=== PATIENT | female | born 1955 | race Caucasian/White ===

== ENCOUNTER → 2022-12-11 15:34 | Outpatient (BNVA) | payer MEDICARE, MEDICAID, SELFPAY | PROVIDERS: PCP Family Medicine; Visit Provider Orthopaedic Surgery | DX: M17.0 Bilateral primary osteoarthritis of knee (principal) | CPT/HCPCS: 20610; 99212; J3301 ==

== ENCOUNTER 2023-03-19 12:34 | Outpatient (REF) | payer MEDICARE, MEDICAID, SELFPAY | END 2023-03-19 12:35 | disposition home or self-care (01) | LOC: HO.HOSX 12:34 | PROVIDERS: Visit Provider Orthopaedic Surgery | DX: M17.12 Unilateral primary osteoarthritis, left knee (principal) | CPT/HCPCS: 99212; J3301 ==

== ENCOUNTER 2023-03-19 15:11 | Outpatient (AMB) | payer MEDICARE, MEDICAID, SELFPAY ==
--- NOTE | 2023-03-19 15:21 | A.OFFVIS_ITS ---
Intake Intake Visit Reasons: OV- LT Knee INJ 12/11/22 Intake Note: Maira Guadalupe is a 67 year old female who presents today with complaints of progressively worsening left knee pain. She describes her pain as sharp and severe in nature, /10. Her pain has gotten worse over the last few years in spite of continued non operative treatments. She has had multiple injections. The most recent injection gave her minimal relief. She has also done physical therapy for 12 weeks over the last 6 months which aggravated her pain. She has tried Tylenol and anti-inflammatory medicines as well as oxycodone which gave her minimal relief. The patient has difficulty walking even short distances bec ause of her pain. At this point her left knee pain is interfering with her activities of daily living and her ability to sleep well the night. Allergies morphine Allergy (Verified 03/19/23 15:22) Rash Medication List - Last Reconciled 03/19/23 by Kvng Culp MD albuterol sulfate 90 mcg/actuation inhalation amitriptyline 75 mg PO BEDTIME anastrozole 1 mg PO DAILY atorvastatin 10 mg PO DAILY clonazepam 1.5 mg PO BEDTIME glucosamine HCl 500 mg PO DAILY hydrochlorothiazide 12.5 mg PO QAM ibuprofen 800 mg PO Q8H PRN irbesartan 300 mg PO DAILY isosorbide mononitrate ER 60 mg PO DAILY montelukast 10 mg PO BEDTIME omeprazole 40 mg PO QAM oxycodone-acetaminophen 5-325 mg tabs PO oxycodone-acetaminophen 5-325 mg (Percocet) 1 tab PO Q8H PRN venlafaxine ER 37.5 mg PO DAILY ziprasidone HCl 20 mg PO BID [facility] Surgical History (Updated 12/11/22 @ 15:49 by Ynes Finney CMA) Status post right knee replacement History of arthroscopy of left shoulder Physical Exam Const Other: Well-nourished well-developed very friendly female awake alert and oriented x3 in no acute distress Extrem Other: Bilateral lower extremity examination shows good capillary refill, no skin lesions noted, normal sensation light touch Left knee examination shows a minimal effusion, palpable crepitus with range of motion, pain with range of motion, range of motion from -3 degrees to 115 degrees, no instability Results Reviewed Results Reviewed: 03/19/23 15:06 Lidocaine HCl 2 % MPF [Xylocaine 2 % MPF] 5 ml .ROUTE .STK-MED ONE Triamcinolone Acetonide [Kenalog-40] 40 mg .ROUTE .STK-MED ONE X-rays of the patient's left knee show severe joint space narrowing with grade 4 [id number] arthritis, subchondral sclerosis, osteophyte formation, no acute bony abnormalities Assessment & Plan Assessment & Plan (1) Arthritis of left knee: Code(s): M17.12 - Unilateral primary osteoarthritis, left knee Plan Ms. Cuenca presents with progressively worsening left knee pain due to end-stage degenerative joint disease. I had a lengthy discussion with the patient regarding the treatment options. At this point she has failed continued non operative treatments. The risks and benefits of left total knee replacement surgery were discussed at length with patient. The patient wishes to proceed with surgery. I will have my office contact the patient to pick a surgery date. I will see her back 1 week prior to her surgery to answer any final questions that she might have. I did refill her prescription for Percocet to help with her pain in the meantime. Feel free to call me at any time should questions regarding her orthopedic management arise. I spent 22 minutes in reviewing the patient's records and imaging studies, seeing the patient and documenting in the medical record. Medications: Refilled oxycodone-acetaminophen 5-325 mg (Percocet) Partial Fill upon patient request. 1 tab PO Q8H PRN 30 tabs 0RF pain Coding Level of Care Code Est Pt Level 2 (52127) Diagnoses Arthritis of left knee M17.12
== END 2023-03-19 15:40 | disposition home or self-care (01) ==
PROVIDERS: PCP Family Medicine; Visit Provider Orthopaedic Surgery
DX: M17.12 Unilateral primary osteoarthritis, left knee (principal)
CPT/HCPCS: 99212

== ENCOUNTER 2023-04-30 10:02 | Outpatient (REF) | payer MEDICARE, MEDICAID, SELFPAY ==
--- NOTE | ~2023-04-30 | XR_ITS ---
EXAMINATION: XR KNEE, LEFT CLINICAL INFORMATION: Pain in left knee COMPARISON: None available. TECHNIQUE: Three views of the left knee. FINDINGS: The bones are diffusely demineralized. Trace joint effusion. Advanced tricompartmental degenerative changes with severe medial joint space narrowing, [id number]. Tricompartmental marginal osteophytes. XR/XR knee LT 3V IMPRESSION: Advanced tricompartmental degenerative changes.
== END 2023-04-30 10:03 | disposition home or self-care (01) ==
LOC: HO.HOSX 10:02
PROVIDERS: Visit Provider Orthopaedic Surgery
DX: Z01.818 Encounter for other preprocedural examination (principal); M17.12 Unilateral primary osteoarthritis, left knee
CPT/HCPCS: 73562; 99212

== ENCOUNTER 2023-04-30 10:42 | Outpatient (AMB) | payer MEDICARE, MEDICAID, SELFPAY ==
--- NOTE | 2023-04-30 10:54 | A.OFFVIS_ITS ---
Intake Intake Visit Reasons: Preop LT TKA 05/05/23 Intake Note: Maria Guadalupe is a 67 year old female who presents today with complaints of progressively worsening left knee pain. She describes her pain as sharp and severe in nature, 04/01. Her pain has gotten worse over the last few years in spite of continued non operative treatments. She has had multiple injections. The most recent injection gave her minimal relief. She has also done physical therapy for 12 weeks over the last 6 months which aggravated her pain. She has tried Tylenol and anti-inflammatory medicines as well as oxycodone which gave her minimal relief. The patient has difficulty walking even short distances bec ause of her pain. At this point her left knee pain is interfering with her activities of daily living and her ability to sleep well the night. Allergies morphine Allergy (Severe, Verified 04/30/23 10:55) itchy rash Medication List - Last Reconciled 05/01/23 by Kvng Culp MD albuterol sulfate 90 mcg/actuation 2 puffs inhalation Q4-6H PRN alpha-1 proteinase inhib.(hum) (Prolastin-C) 1,000 mg IV QWEEK amitriptyline 75 mg PO BEDTIME anastrozole 1 mg PO DAILY atorvastatin 10 mg PO DAILY calcium carbonate (Calcium) 600 mg PO DAILY cholecalciferol (vitamin D3) (Vitamin D3) 50 mcg PO DAILY clonazepam 1.5 mg PO BEDTIME docusate sodium (Stool Softener) 200 mg PO BID [id number]-cawooorpo-sdshtbtw 100-62.5-25 mcg (Trelegy Ellipta) 1 ea inhalation DAILY glucosamine HCl 1,500 mg PO DAILY hydrochlorothiazide 12.5 mg PO QAM ibuprofen 800 mg PO Q8H PRN irbesartan 300 mg PO DAILY isosorbide mononitrate ER 30 mg PO DAILY loratadine (Claritin) 10 mg PO DAILY montelukast 10 mg PO BEDTIME multivitamin with minerals (Hair,Skin and Nails tablet) 1 tab PO DAILY omega 7-ldh-pyf-fish oil 1,000 mg (120 mg-180 mg) (Fish Oil) 1 cap PO DAILY omeprazole 40 mg PO BID oxycodone-acetaminophen 5-325 mg (Percocet) 1 tab PO Q8H PRN polyethylene glycol 3350 (Miralax) 17 grams PO DAILY PRN venlafaxine ER 37.5 mg PO DAILY ziprasidone HCl 20 mg PO BID PFSH Medical History (Updated 04/25/23 @ 12:40 by Peggy Ballesteros RN) Left bundle branch block (LBBB) Osteoarthritis Hx of breast cancer GERD (gastroesophageal reflux disease) Anxiety Depression Asthma Aortic stenosis, mild Elevated cholesterol HTN (hypertension) Hx of concussion BOUBACAR on CPAP Surgical History (Updated 04/25/23 @ 12:16 by Peggy Ballesteros RN) History of lumpectomy of right breast Hx of tonsillectomy Hx of hysterectomy, total Hx of bilateral cataract extraction History of bilateral carpal tunnel release Hx of colonoscopy Status post right knee replacement History of arthroscopy of left shoulder Social History Household Members: Family Housing: House Are you a primary career development associate to a significant other at home: No Do you presently have visiting nurse or other home services: No Patient Tobacco Use Status: Former Tobacco user Quit Date: Tobacco use type: Cigar Use of substances other than those prescribed or required for medical reasons: No Advance Directives: Yes Advance Directives Information Provided: No Advance Directives on File: Yes Advance Directives Date on File: 02/14/23 Healthcare Proxy: Yes Physical Exam Const Other: Well-nourished well-developed very friendly female awake alert and oriented x3 in no acute distress Lungs - clear to auscultation bilaterally with symmetric expansion Cardiovascular exam - regular rate and rhythm Abdominal exam - soft nontender nondistended Extrem Other: Bilateral lower extremity examination shows good capillary refill, no skin lesions noted, normal sensation light touch Left knee examination shows a mild effusion, palpable crepitus with range of motion, pain with range of motion, range of motion from -3 degrees to 115 degrees, no instability Results Reviewed Results Reviewed: X-rays of the patient's left knee show severe joint space narrowing with grade 4 [id number] arthritis, subchondral sclerosis, osteophyte formation, no acute bony abnormalities Assessment & Plan Assessment & Plan (1) Arthritis of left knee: Code(s): M17.12 - Unilateral primary osteoarthritis, left knee Plan Ms. Cuenca presents with progressively worsening left knee pain due to end-stage degenerative joint disease. I had a lengthy discussion with the patient regarding the treatment options. At this point she has failed continued non operative treatments. The risks and benefits of left total knee replacement surgery were discussed at length with the patient. The patient wishes to proceed with surgery. guest services coordinator will be consulted following her surgery for home physical therapy and nursing. I will see the patient back 2-3 weeks following her surgery for her 1st postoperative appointment. The patient will follow-up as instructed. Feel free to call me at any time should questions regarding her orthopedic management arise. I spent 22 minutes in reviewing the patient's records and imaging studies, seeing the patient and documenting in the medical record. Orders: Orders XR knee LT 3V 04/30/23 M25.562 - Pain in left knee Coding Level of Care Code Est Pt Level 2 (72645) Diagnoses Arthritis of left knee M17.12
== END 2023-04-30 11:57 | disposition home or self-care (01) ==
PROVIDERS: PCP Family Medicine; Visit Provider Orthopaedic Surgery
DX: M17.12 Unilateral primary osteoarthritis, left knee (principal)
CPT/HCPCS: 99212

== ENCOUNTER → 2023-05-05 08:30 | Outpatient (BNV) | payer MEDICARE, MEDICAID, SELFPAY | PROVIDERS: PCP Family Medicine; Visit Provider Orthopaedic Surgery | DX: Z47.1 Aftercare following joint replacement surgery (principal); Z96.652 Presence of left artificial knee joint | CPT/HCPCS: 27447; 99024; G0180 ==

== ENCOUNTER → 2023-05-05 08:30 | Outpatient (BNV) | payer MEDICARE, MEDICAID, SELFPAY | PROVIDERS: PCP Family Medicine; Visit Provider Nurse Practitioner Acute Care | DX: M25.562 Pain in left knee (principal) | CPT/HCPCS: 99222 ==

== ENCOUNTER 2023-05-06 11:45 | Inpatient (IN) | payer MEDICARE, MEDICAID, SELFPAY ==
[2023-04-25 12:18] VITALS: BP 126/61; PULSE 75; RESP 16; O2SAT 97; BMI 34.5
--- NOTE | 2023-04-25 12:36 | P.CONAN_ITS ---
Documented by User: Chikis Cha NP 04/28/23 14:26 HPI - Anesthesia Eval Consult details Narrative: 67yo F for Left Knee Replacement Total, 05/05/23 Medically cleared Cardiac cleared (Previous HAY improved with treatment of Alpha 1 antitrypsin deficiency so thought not to be cardiac related.) No recent illness No CP/SOB with minimal activity r/t knee pain GERD. Well controlled on ppi Asthma. Stable. Very rare albuterol. Trelegy daily BOUBACAR with CPAP QHS Aortic stenosis. Very mild per 2022 ECHO Alpha 1 antitrypsin deficiency with weekly Prolastin infusion PMFSH Active Problems Active Problems: All Active Problems (Updated 04/25/23 @ 12:16 by Peggy Ballesteros RN) Alpha 1-antitrypsin PiMS phenotype (Acute) Left knee pain (Acute) Arthritis of both knees (Acute) Arthritis of left knee (Acute) Past Medical History Medical History Left bundle branch block (LBBB) Osteoarthritis Hx of breast cancer GERD (gastroesophageal reflux disease) Anxiety Depression Asthma Aortic stenosis, mild Elevated cholesterol HTN (hypertension) Hx of concussion BOUBACAR on CPAP Family History Family history of problems with anesthesia: No Surgical History Surgical History History of lumpectomy of right breast Hx of tonsillectomy Hx of hysterectomy, total Hx of bilateral cataract extraction History of bilateral carpal tunnel release Hx of colonoscopy Status post right knee replacement History of arthroscopy of left shoulder History of Problems with Anesthesia: No Social History Social History Household Members: Family Housing: House Are you a primary patient care manager to a significant other at home: No Do you presently have visiting nurse or other home services: No Patient Tobacco Use Status: Former Tobacco user Quit Date: Tobacco use type: Cigar Advance Directives Date on File: 02/14/23 Meds Allergies Allergy/AdvReac Type Severity Reaction Status Date / Time morphine Allergy Severe itchy rash Verified 04/30/23 10:55 Home Medications Medication Instructions Recorded Confirmed Last Taken Type albuterol sulfate 90 mcg/actuation 2 puff inhalation Q4-6H PRN 12/11/22 05/01/23 Unknown History aerosol inhaler Shortness Of Breath Or Wheezing amitriptyline 75 mg tablet 75 mg PO BEDTIME 12/11/22 05/01/23 Unknown History anastrozole 1 mg tablet 1 mg PO DAILY 12/11/22 05/01/23 Unknown History atorvastatin 10 mg tablet 10 mg PO DAILY 12/11/22 05/01/23 Unknown History clonazepam 1 mg tablet 1.5 mg PO BEDTIME 12/11/22 05/01/23 Unknown History glucosamine HCl 500 mg tablet 1,500 mg PO DAILY 12/11/22 05/01/23 Unknown History hydrochlorothiazide 12.5 mg capsule 12.5 mg PO QAM 12/11/22 05/01/23 Unknown History ibuprofen 800 mg tablet 800 mg PO Q8H PRN Pain 12/11/22 05/01/23 Unknown History irbesartan 300 mg tablet 300 mg PO DAILY 12/11/22 05/01/23 Unknown History montelukast 10 mg tablet 10 mg PO BEDTIME 12/11/22 05/01/23 Unknown History omeprazole 40 mg capsule,delayed 40 mg PO BID 12/11/22 05/01/23 Unknown History release venlafaxine 37.5 mg 37.5 mg PO DAILY 12/11/22 05/01/23 Unknown History capsule,extended release 24 hr ziprasidone HCl 20 mg capsule 20 mg PO BID 12/11/22 05/01/23 Unknown History alpha-1 proteinase inhib.(hum) 1,000 mg IV QWEEK 04/24/23 05/01/23 Unknown History 1,000 mg intravenous solution (Prolastin-C) calcium carbonate 600 mg calcium 600 mg PO DAILY 04/24/23 05/01/23 Unknown History (1,500 mg) tablet (Calcium) cholecalciferol (vitamin D3) 50 50 mcg PO DAILY 04/24/23 05/01/23 Unknown History mcg (2,000 unit) capsule (Vitamin D3) docusate sodium 100 mg tablet 200 mg PO BID 04/24/23 05/01/23 Unknown History (Stool Softener) fluticasone fur. 100 mcg-umeclid 1 ea inhalation DAILY 04/24/23 05/01/23 Unknown History 62.5 mcg-vilant 25 mcg inhalat.powder (Trelegy Ellipta) isosorbide mononitrate 30 mg 30 mg PO DAILY 04/24/23 05/01/23 Unknown History tablet,extended release 24 hr multivitamin with minerals 1 tab PO DAILY 04/24/23 05/01/23 Unknown History (Hair,Skin and Nails tablet) omega 1-sje-zhx-fish oil 1,000 mg 1 cap PO DAILY 04/24/23 05/01/23 Unknown History (120 mg-180 mg) capsule (Fish Oil) polyethylene glycol 3350 17 17 g PO DAILY PRN Constipation 04/24/23 05/01/23 Unknown History gram/dose oral powder (Miralax) loratadine 10 mg chewable tablet 10 mg PO DAILY 04/25/23 05/01/23 Unknown History (Claritin) Exam Exam Date and Time: April 25, 2023 1236 Height,Weight and Vital Signs: Height 5 ft 5 in Weight 94 kg Last Vital Signs Pulse 75 04/25/23 12:18 Resp 16 04/25/23 12:18 BP 126/61 04/25/23 12:18 Pulse Ox 97 04/25/23 12:18 O2 Del Method Room Air 04/25/23 12:18 Pertinent Lab Results Pertinent Lab Results: CBC and BMP 04/21/23 from outside facility WNL except slightly low H&H Narrative Narrative: EKG 03/2023 SR @ 77 Horizontal axis Possible septal infarct Moderate intraventricular conduction delay Lexiscan stress 02/2023 Negative for angina, negative for ischemic EKG changes, Negative for arrhythmias Mildly reduced tracer uptake in the apex and distal septal adams of LV. Overall size of defect is small. Resting images demonstrace no significant change in the apical defect or distal septal, but worsening perfusion in the inferior wall. EF 55% ECHO 11/2022 LV nml in size LV systolic function is nml RV is nml in size and function LA size is nml Very mild aortic stenosis with mean gradient of 10mmHg Mild grade 1 DD c/w htn, not HF Nml estimated PA pressure Airway Mallampati Class: II TM Dist: >3cm Neck ROM: Full Denture: Upper Partial: Lower Heart: RRR Lungs: CTAB Assessment and Plan Assessment Anesthesia Assessment: Anesthesia Plan Discussed and PAT Visit Final Anesthetic Review Family History of Problems with Anesthesia: No History of Problems with Anesthesia: No Documented by User: Yumiko Tovar MD 05/05/23 08:42 PMFSH Past Medical History Medical History Left bundle branch block (LBBB) Osteoarthritis Hx of breast cancer GERD (gastroesophageal reflux disease) Anxiety Depression Asthma Aortic stenosis, mild Elevated cholesterol HTN (hypertension) Hx of concussion BOUBACAR on CPAP Surgical History Surgical History History of lumpectomy of right breast Hx of tonsillectomy Hx of hysterectomy, total Hx of bilateral cataract extraction History of bilateral carpal tunnel release Hx of colonoscopy Status post right knee replacement History of arthroscopy of left shoulder Social History Social History Household Members: Family Housing: House Are you a primary patient care manager to a significant other at home: No Do you presently have visiting nurse or other home services: No Patient Tobacco Use Status: Former Tobacco user Quit Date: Tobacco use type: Cigar Advance Directives Date on File: 02/14/23 Meds Allergies Allergy/AdvReac Type Severity Reaction Status Date / Time morphine Allergy Severe itchy rash Verified 04/30/23 10:55 Home Medications Medication Instructions Recorded Confirmed Last Taken Type albuterol sulfate 90 mcg/actuation 2 puff inhalation Q4-6H PRN 12/11/22 05/01/23 Unknown History aerosol inhaler Shortness Of Breath Or Wheezing amitriptyline 75 mg tablet 75 mg PO BEDTIME 12/11/22 05/01/23 Unknown History anastrozole 1 mg tablet 1 mg PO DAILY 12/11/22 05/01/23 Unknown History atorvastatin 10 mg tablet 10 mg PO DAILY 12/11/22 05/01/23 Unknown History clonazepam 1 mg tablet 1.5 mg PO BEDTIME 12/11/22 05/01/23 Unknown History glucosamine HCl 500 mg tablet 1,500 mg PO DAILY 12/11/22 05/01/23 Unknown History hydrochlorothiazide 12.5 mg capsule 12.5 mg PO QAM 12/11/22 05/01/23 Unknown History ibuprofen 800 mg tablet 800 mg PO Q8H PRN Pain 12/11/22 05/01/23 Unknown History irbesartan 300 mg tablet 300 mg PO DAILY 12/11/22 05/01/23 Unknown History montelukast 10 mg tablet 10 mg PO BEDTIME 12/11/22 05/01/23 Unknown History omeprazole 40 mg capsule,delayed 40 mg PO BID 12/11/22 05/01/23 Unknown History release venlafaxine 37.5 mg 37.5 mg PO DAILY 12/11/22 05/01/23 Unknown History capsule,extended release 24 hr ziprasidone HCl 20 mg capsule 20 mg PO BID 12/11/22 05/01/23 Unknown History alpha-1 proteinase inhib.(hum) 1,000 mg IV QWEEK 04/24/23 05/01/23 Unknown History 1,000 mg intravenous solution (Prolastin-C) calcium carbonate 600 mg calcium 600 mg PO DAILY 04/24/23 05/01/23 Unknown H istory (1,500 mg) tablet (Calcium) cholecalciferol (vitamin D3) 50 50 mcg PO DAILY 04/24/23 05/01/23 Unknown History mcg (2,000 unit) capsule (Vitamin D3) docusate sodium 100 mg tablet 200 mg PO BID 04/24/23 05/01/23 Unknown History (Stool Softener) fluticasone fur. 100 mcg-umeclid 1 ea inhalation DAILY 04/24/23 05/01/23 Unknown History 62.5 mcg-vilant 25 mcg inhalat.powder (Trelegy Ellipta) isosorbide mononitrate 30 mg 30 mg PO DAILY 04/24/23 05/01/23 Unknown History tablet,extended release 24 hr multivitamin with minerals 1 tab PO DAILY 04/24/23 05/01/23 Unknown History (Hair,Skin and Nails tablet) omega 6-qst-mwc-fish oil 1,000 mg 1 cap PO DAILY 04/24/23 05/01/23 Unknown History (120 mg-180 mg) capsule (Fish Oil) polyethylene glycol 3350 17 17 g PO DAILY PRN Constipation 04/24/23 05/01/23 Unknown History gram/dose oral powder (Miralax) loratadine 10 mg chewable tablet 10 mg PO DAILY 04/25/23 05/01/23 Unknown History (Claritin) Assessment and Plan Assessment Anesthesia Assessment: Anesthesia Plan Discussed and Chart Reviewed Final Anesthetic Review NPO: Yes ASA Class: III Final Preanesthetic Review: No Changes in Pt Med Stat, Meds/Allgs Chart Reviewed, Consent Obtained/Reviewed and Anes Risks/Benef Reviewed Patient Risk: Intermediate Procedure Risk: Intermediate Anesthetic Plan Anesthetic Plan: GA and Regional Block Disposition: Standard PACU
[2023-04-25 15:19] LABS: MRSA Nasal PCR NEGATIVE (Negative); SA Nasal PCR POSITIVE (Negative)
[2023-05-05] VITALS (8 sets, daily range): BP systolic 104–140; BP diastolic 49–63; PULSE 66–84; RESP 16–17; TEMP 36.1–36.8; O2SAT 96–99; BMI 35.2
[2023-05-05] MEDS: Lactated Ringers 1,000 ML 100 ML IVCONT ×3 (09:34→19:53)
[2023-05-05] MEDS: vancomycin HCL 1,500 MG in 0.9 % Sodium Chloride 500 ML 333.33 MG IV ×2 (09:34→22:36)
--- NOTE | 2023-05-05 13:19 | P.BOP_ITS ---
Brief Operative Note Date of Service: 05/05/23 Pre-op diagnosis: Left knee degenerative joint disease Post-op diagnosis: same Procedure: Left total knee arthroplasty Implants: [place] [employer] cemented posterior stabilized total knee arthroplasty with a femoral component size 4 left, a tibial component size 4, polyethylene liner size 4 with 9 mm of thickness, a symmetric patellar component size 29 with 9 mm of thickness Surgeon: Kvng Culp MD Anesthesia: spinal Was an Hot Blaster used for this Procedure?: Yes Hot Blaster: Heidi Chua Estimated blood loss (mL): 200 Pathology: other (Bony fragments from the left femur, tibia and patella) Condition: stable Disposition: PACU
--- NOTE | 2023-05-05 13:20 | W.PM.OPN ---
Operative Note Operative Note Date of Service: 05/05/23 Narrative: After the patient was identified as Maria Guadalupe Cuenca and their left knee was initialed by myself the patient was brought to the holding area where a left leg nerve block was performed by the anesthesiologist in routine fashion. The patient was then brought to the operating room where conscious sedation and spinal anesthesia were performed by the anesthesiologist in routine fashion The patient was given both IV Ancef and IV vancomycin preoperatively for infection prophylaxis. The patient's left lower extremity was prepped and draped in sterile fashion. A formal time-out was completed. The patient's left knee was placed onto a small bump to produce 30? of knee flexion during exposure. A #10 scalpel blade was used to make a midline incision extending 1 handbreadth proximal and distal to the patella. A second #10 scalpel blade was used to dissect the subcutaneous tissues down to the extensor mechanism. The subcutaneous flaps were maintained as thick as possible. A medial parapatellar arthrotomy was then performed using a #10 scalpel blade. The arthrotomy was begun just medial to the patellar tendon. The arthrotomy was continued 1 cm medial to the patella and then 5 mm into the medial aspect of the quadriceps tendon. The infrapatellar fat pad was partially excised to help with exposure. The soft tissue retinaculum was raised one-half of the way around the medial aspect of the proximal tibia. The patella was everted and the knee was flexed to 90?. There was no injury to the patellar tendon or its insertion onto the tibial tubercle. A drill bit was introduced into the distal aspect of the femur with a starting point 1 cm anterior to the origin of the posterior cruciate ligament. The intramedullary alignment vanita was put into place. The distal alignment guide was set for a 5 degree valgus cut. The distal cutting block was put into place and was held with 4 pins. The intramedullary alignment vanita was removed. Soft tissues were retracted in the distal femoral cut was made using a sagittal saw. The distal aspect of the femur measured to be a size 4 left component. Two drill holes were placed into the distal aspect of the femur marking 3? of external rotation. The distal cutting block was impacted into place and was held with 2 pins. Soft tissues were retracted and the 4 distal femoral cuts were made using a sagittal saw. Final notching and drilling of the distal aspect of the femur were performed in routine fashion. The trial femoral component was impacted into place. The knee was taken through a full range of motion. The patella tracked well. The patella was everted and the knee was flexed to 90?. The trial component was removed and our attention was directed to the proximal tibia. The medial and lateral menisci were removed using a #10 scalpel blade. A small rim of the medial meniscus was left intact to help prevent injury to the medial collateral ligament. A drill bit was then introduced into the proximal tibia with a starting point midway from medial to lateral and one-third of the way posteriorly. The intramedullary alignment vanita was put into place. The proximal tibial cutting guide was placed over the alignment vanita in line with the 2nd toe. The guide was held in place using 3 pins. The intramedullary alignment vanita was removed. Soft tissues were retracted and the proximal tibial cut was made using a sagittal saw. The proximal tibia measured to be a size 4 component. The tibial tray was put into place with a 9 mm liner. The femoral component was impacted into place. The knee was taken through a full range of motion. There was full flexion and full extension. There was no instability with varus or valgus stress testing with the knee in flexion or extension. The patella tracked well with no medially directed force. The rotation of the tibial tray was marked using electrocautery with the knee in extension. The patella was everted and the knee was flexed to 90?. All trial components were removed. The tibial tray was placed onto the proximal tibia in line with the electrocautery tevin. The tray was held in place using 3 pins. Final broaching of the proximal tibia was performed in routine fashion. The trial liner and trial femoral component were put into place. The knee was brought into extension and our attention was directed to the patella. The patella measured 25 mm in thickness. The patellar resection guide was set for a 10 mm resection. Soft tissues were retracted and the patella cut was made using a sagittal saw. The remaining patella measured 15 mm in thickness. The undersurface of the patella was measured to be a size 29 asymmetric component. Three drill holes were placed into the undersurface of the patella in routine fashion. The trial component was put into place. The knee was taken through a full range of motion. The patella tracked well. The patella was everted and the knee was flexed to 90?. All trial components were removed. The knee was once again brought into extension and placed onto a small bump. The knee joint was irrigated with copious amounts of normal saline solution via pulse lavage while the cement was mixed. The patella was everted and the knee was flexed to 90?. A small amount of cement was placed along the posterior aspects of the tibial and femoral components. Cement was then pressurized into the proximal tibia. The tibial component was impacted into place. Any excess cement was removed. The polyethylene liner was then impacted into place. Cement was then pressurized into the distal aspect of the femur. A small amount of cement was placed into the intramedullary canal to help reduce bleeding. The femoral component was impacted into place. Any excess cement was removed. The knee was then brought into extension. Cement was pressurized into the undersurface of the patella. The patellar component was put into place and was held with a patella clamp. Any excess cement was removed. Once the cement had hardened the patellar clamp was removed. The knee was taken through a full range of motion. There was full flexion and extension. There was no instability with varus or valgus stress testing with the knee in flexion or extension. The patella tracked well with no medially directed force. The knee joint was irrigated with copious amounts of normal saline solution via pulse lavage. Any significant bleeding vessels were coagulated. The patient's left knee was placed onto a small bump. The arthrotomy was closed with #2 Ethibond [id number] interrupted suture as well as #1 Vicryl [id number] interrupted suture. The wound was once again irrigated. The subcutaneous tissues were closed with 0 Vicryl and 2-0 Vicryl interrupted sutures. The skin was closed with skin dennis. Dry sterile dressing and Jason bandages were placed over the patient's left knee. The patient was awake and alert. The patient was transferred to the recovery room in stable condition.
--- NOTE | 2023-05-05 14:18 | P.HPHOSP_ITS ---
History of Present Illness Date of Service: 05/05/23 Chief Complaint: Medical consultation Review of Systems Review of Systems: Denies any recent fever chills or decrease in appetite respiratory denies any shortness of breath coverage production cardiovascular denied chest pain gastrointestinal denies any dysphagia abdominal pain nausea vomiting or diarrhea genitourinary denies any dysuria frequency or hematuria musculoskeletal denies any joint pain or swelling neuropsych denies any weakness or seizures all other systems reviewed are negative [facility] Medical History Left bundle branch block (LBBB) Osteoarthritis Hx of breast cancer GERD (gastroesophageal reflux disease) Anxiety Depression Asthma Aortic stenosis, mild Elevated cholesterol HTN (hypertension) Hx of concussion BOUBACAR on CPAP Surgical History History of lumpectomy of right breast Hx of tonsillectomy Hx of hysterectomy, total Hx of bilateral cataract extraction History of bilateral carpal tunnel release Hx of colonoscopy Status post right knee replacement History of arthroscopy of left shoulder Social History Household Members: Spouse Housing: House Are you a primary family day carer to a significant other at home: No Do you presently have visiting nurse or other home services: No Patient Tobacco Use Status: Former Tobacco user Quit Date: Tobacco use type: Cigar Second Hand Smoke Exposure: No Advance Directives Date on File: 02/14/23 Meds Allergies Allergy/AdvReac Type Severity Reaction Status Date / Time morphine Allergy Severe itchy rash Verified 05/05/23 09:15 Active Medications: Current Medications Albuterol Sulfate (Albuterol Sulfate 90 Mcg 8 Gm Inhaler) 2 puff INHALE Q4-6H PRN PRN Reason: Shortness Of Breath Or Wheezing Amitriptyline HCl (Amitriptyline Hcl 25 Mg Tablet) 75 mg PO BEDTIME [facility]AI Anastrozole (Anastrozole 1 Mg Tablet) 1 mg PO DAILY [facility] Atorvastatin Calcium (Atorvastatin Calcium 10 Mg Tablet) 10 mg PO DAILY [facility] Clonazepam (Clonazepam 0.5 Mg Tablet) 1.5 mg PO BEDTIME [facility] Docusate Sodium (Docusate Sodium 100 Mg Capsule) 200 mg PO BID [facility]AI Fluticasone/Umeclidinium/Vilanterol (Fluticasone/Umeclidinium/Vilanterol 100/62.5/25 Blst.W.Dev) puff INHALE DAILY [facility] Hydrochlorothiazide (Hydrochlorothiazide 12.5 Mg Tablet) 12.5 mg PO QAM [facility]; Protocol Lactated Ringer's (Lr) 1,000 mls @ 100 mls/hr IVCONT .Q10H [facility]AI Last Admin: 05/05/23 09:34 Dose: 100 mls/hr Non-Formulary Medication (Alpha-1 Proteinase Inhib.(Hum) [Prolastin-C]) 1,000 mg IV QWEEK [facility] Non-Formulary Medication (Calcium Carbonate [Calcium 600]) 600 mg PO DAILY [facility] Non-Formulary Medication (Glucosamine Hcl) 1,500 mg PO DAILY [facility] Vitamin D (Cholecalciferol (Vitamin D3) 25 Mcg Tablet) 50 mcg PO DAILY [facility] Home Medications Medication Instructions Recorded Confirmed Last Taken Type albuterol sulfate 90 mcg/actuation 2 puff inhalation Q4-6H PRN 12/11/22 05/01/23 Unknown History aerosol inhaler Shortness Of Breath Or Wheezing amitriptyline 75 mg tablet 75 mg PO BEDTIME 12/11/22 05/01/23 05/04/23 History anastrozole 1 mg tablet 1 mg PO DAILY 12/11/22 05/01/23 05/04/23 History atorvastatin 10 mg tablet 10 mg PO DAILY 12/11/22 05/01/23 05/04/23 History clonazepam 1 mg tablet 1.5 mg PO BEDTIME 12/11/22 05/01/23 05/04/23 History glucosamine HCl 500 mg tablet 1,500 mg PO DAILY 12/11/22 05/01/23 05/04/23 History hydrochlorothiazide 12.5 mg capsule 12.5 mg PO QAM 12/11/22 05/01/23 05/04/23 History ibuprofen 800 mg tablet 800 mg PO Q8H PRN Pain 12/11/22 05/01/23 Unknown History irbesartan 300 mg tablet 300 mg PO DAILY 12/11/22 05/01/23 05/04/23 History montelukast 10 mg tablet 10 mg PO BEDTIME 12/11/22 05/01/23 05/04/23 History omeprazole 40 mg capsule,delayed 40 mg PO BID 12/11/22 05/01/23 05/05/23 06:00 History release venlafaxine 37.5 mg 37.5 mg PO DAILY 12/11/22 05/01/23 05/04/23 History capsule,extended release 24 hr ziprasidone HCl 20 mg capsule 20 mg PO BID 12/11/22 05/01/23 05/04/23 History alpha-1 proteinase inhib.(hum) 1,000 mg IV QWEEK 04/24/23 05/01/23 Unknown History 1,000 mg intravenous solution (Prolastin-C) calcium carbonate 600 mg calcium 600 mg PO DAILY 04/24/23 05/01/23 05/04/23 History (1,500 mg) tablet (Calcium) cholecalciferol (vitamin D3) 50 50 mcg PO DAILY 04/24/23 05/01/23 05/04/23 History mcg (2,000 unit) capsule (Vitamin D3) docusate sodium 100 mg tablet 200 mg PO BID 04/24/23 05/01/23 05/04/23 History (Stool Softener) fluticasone fur. 100 mcg-umeclid 1 ea inhalation DAILY 04/24/23 05/01/23 05/05/23 06:00 History 62.5 mcg-vilant 25 mcg inhalat.powder (Trelegy Ellipta) isosorbide mononitrate 30 mg 30 mg PO DAILY 04/24/23 05/01/23 05/05/23 06:00 History tablet,extended release 24 hr multivitamin with minerals 1 tab PO DAILY 04/24/23 05/01/23 05/04/23 History (Hair,Skin and Nails tablet) omega 4-aia-bkc-fish oil 1,000 mg 1 cap PO DAILY 04/24/23 05/01/23 05/04/23 History (120 mg-180 mg) capsule (Fish Oil) polyethylene glycol 3350 17 17 g PO DAILY PRN Constipation 04/24/23 05/01/23 05/04/23 History gram/dose oral powder (Miralax) loratadine 10 mg chewable tablet 10 mg PO DAILY 04/25/23 05/01/23 05/05/23 06:00 History (Claritin) Physical Exam Vital Signs and Narrative: Vital Signs: Last Vital Signs Temp 97.8 F 05/05/23 13:44 Pulse 68 05/05/23 13:44 Resp 16 05/05/23 13:44 BP 119/56 L 05/05/23 13:44 Pulse Ox 98 05/05/23 13:44 O2 Del Method Room Air 05/05/23 13:44 BMI result Body Mass Index 34.5 Appearing in no acute distress head is normocephalic atraumatic eyes pupils are PERRLA sclera is anicteric mouth throat mucous membranes are intact and moist neck is supple no lymphadenopathy, no JVD noted lung sounds are clear to auscultation heart regular rate rhythm, clear S1, S2 positive bowel sounds, abdomen is soft, nontender neuro patient is alert x3, no focal deficits Assessment and Plan Plan 67 year old women admitted by Orthopedic surgery and is status post left total knee arthroplasty Left total knee arthroplasty Management as per surgical team Pain management Hypertension Blood pressure on the softer side postoperative, restart hydrochlorothiazide when blood pressure allows Mental health Continue home medications Hyperlipidemia Continue statin Obstructive sleep apnea Continue CPAP History of left bundle-branch block Continue isosorbide GERD Continue PPI DVT prophylaxis as per admitting team Full code
--- NOTE | 2023-05-05 14:32 | P.CONHOSP_ITS ---
History of Present Illness Data of Consult Service Date: 05/05/23 Primary Care Provider: Dario Cherry MD HPI 67-year-old woman with history of hypertension, hyperlipidemia, COPD admitted by Orthopedic surgery and is status post left total knee arthroplasty. Surgery was unremarkable. Patient is hemodynamically stable. She has very minimal amount of pain at this time. She has no acute medical complaints. She is currently resting in bed with family at bedside. Review of Systems Review of Systems: Denies any recent fever chills or decrease in appetite respiratory denies any shortness of breath coverage production cardiovascular denies cardiac disease gastrointestinal denies any dysphagia abdominal pain nausea vomiting or diarrh ea genitourinary denies any dysuria frequency or hematuria musculoskeletal no pain neuropsych denies any weakness or seizures all other systems reviewed are negative [facility] Medical History Left bundle branch block (LBBB) Osteoarthritis Hx of breast cancer GERD (gastroesophageal reflux disease) Anxiety Depression Asthma Aortic stenosis, mild Elevated cholesterol HTN (hypertension) Hx of concussion BOUBACAR on CPAP Surgical History History of lumpectomy of right breast Hx of tonsillectomy Hx of hysterectomy, total Hx of bilateral cataract extraction History of bilateral carpal tunnel release Hx of colonoscopy Status post right knee replacement History of arthroscopy of left shoulder Social History Household Members: Spouse Housing: House Are you a primary child care development specialist to a significant other at home: No Do you presently have visiting nurse or other home services: No Patient Tobacco Use Status: Former Tobacco user Quit Date: Tobacco use type: Cigar Second Hand Smoke Exposure: No Advance Directives Date on File: 02/14/23 Meds Allergies Allergy/AdvReac Type Severity Reaction Status Date / Time morphine Allergy Severe itchy rash Verified 05/05/23 09:15 Active Medications: Current Medications Acetaminophen (Acetaminophen 325 Mg Tablet) 650 mg PO Q6H PRN PRN Reason: Pain, Mild (Pain Scale 1-3) Albuterol Sulfate (Albuterol Sulfate 90 Mcg 8 Gm Inhaler) 2 puff INHALE Q4-6H PRN PRN Reason: Shortness Of Breath Or Wheezing Amitriptyline HCl (Amitriptyline Hcl 25 Mg Tablet) 75 mg PO BEDTIME THAI Anastrozole (Anastrozole 1 Mg Tablet) 1 mg PO DAILY [facility] Aspirin (Aspirin 325 Mg Tablet) 325 mg PO Q12H [facility]AI Atorvastatin Calcium (Atorvastatin Calcium 10 Mg Tablet) 10 mg PO DAILY [facility] Celecoxib (Celecoxib 200 Mg Capsule) 200 mg PO BID [facility]AI Clonazepam (Clonazepam 0.5 Mg Tablet) 1.5 mg PO BEDTIME [facility]AI Docusate Sodium (Docusate Sodium 100 Mg Capsule) 200 mg PO BID [facility] Fluticasone/Umeclidinium/Vilanterol (Fluticasone/Umeclidinium/Vilanterol 100/62.5/25 Blst.W.Dev) puff INHALE DAILY [facility] Gabapentin (Gabapentin 100 Mg Capsule) 100 mg PO BEDTIME [facility]AI Hydrochlorothiazide (Hydrochlorothiazide 12.5 Mg Tablet) 12.5 mg PO QAM [facility]AI; Protocol Hydromorphone HCl (Hydromorphone Hcl 0.5 Mg/0.5 Ml Syringe) 0.25 mg IVPUSH Q4H PRN; Protocol PRN Reason: Pain, Severe (Pain Scale 7-10) Hydromorphone HCl (Hydromorphone Hcl 0.5 Mg/0.5 Ml Syringe) 0.5 mg IVPUSH Q4H PRN; Protocol PRN Reason: Pain, Severe (Pain Scale 7-10) Lactated Ringer's (Lr) 1,000 mls @ 100 mls/hr IVCONT .Q10H [facility] Last Admin: 05/05/23 09:34 Dose: 100 mls/hr Lactated Ringer's (Lr) 1,000 mls @ 100 mls/hr IVCONT .Q10H [facility] Vancomycin HCl 1,500 mg/ (Sodium Chloride) 500 mls @ 333.333 mls/hr IV POSTOP ONE Stop: 05/05/23 15:45 Cefazolin Sodium/Dextrose (Ancef) 2 gm in 50 mls @ 100 mls/hr IV Q8H [facility] Stop: 05/06/23 00:00 Isosorbide Mononitrate (Isosorbide Mononitrate 30 Mg Tab.Er.24h) 30 mg PO DAILY [facility]; Protocol Methocarbamol (Methocarbamol 750 Mg Tablet) 750 mg PO BEDTIME [facility] Montelukast Sodium (Montelukast Sodium 10 Mg Tablet) 10 mg PO BEDTIME [facility] Multivitamins/Vitamin C (Multivitamin Tablet) 1 tab PO DAILY [facility] Non-Formulary Medication (Alpha-1 Proteinase Inhib.(Hum) [Prolastin-C]) 1,000 mg IV QWEEK [facility] Non-Formulary Medication (Calcium Carbonate [Calcium 600]) 600 mg PO DAILY [facility] Non-Formulary Medication (Glucosamine Hcl) 1,500 mg PO DAILY [facility] Non-Formulary Medication (Irbesartan) 300 mg PO DAILY [facility] Non-Formulary Medication (Loratadine [Claritin]) 10 mg PO DAILY [facility] Non-Formulary Medication ([place] 4-Tkh-Rzp-Fish Oil [Fish Oil]) 1 cap PO DAILY [facility] Omeprazole (Omeprazole 40 Mg Capsule.Dr) 40 mg PO BID [facility] Ondansetron HCl (Ondansetron Hcl 4 Mg/2 Ml Vial) 4 mg IVPUSH Q8H PRN PRN Reason: Nausea and Vomiting Oxycodone HCl (Oxycodone Hcl Immed Release 5 Mg Tablet) 5 mg PO Q4H PRN PRN Reason: Pain, Moderate(Pain Scale 4-6) Oxycodone HCl (Oxycodone Hcl Er 10 Mg Tab.Er.12h) 10 mg PO BID [facility] Pharmacy Consult (Consult Rx Vancomycin Dosing) 1 each MISCELLANE DAILY PRN PRN Reason: Consult order Polyethylene Glycol (Polyethylene Glycol 3350 17 Gm Powd.Pack) 17 gm PO DAILY PRN PRN Reason: Constipation Sodium Chloride (0.9 % Sodium Chloride Flush 3 Ml Syringe) 3 ml IVFLUSH QSHIFT [facility] Venlafaxine HCl (Venlafaxine Hcl Er 37.5 Mg Cap.Er.24h) 37.5 mg PO DAILY [facility] Vitamin D (Cholecalciferol (Vitamin D3) 25 Mcg Tablet) 50 mcg PO DAILY [facility] Ziprasidone (Ziprasidone 20 Mg Capsule) 20 mg PO BID [facility] Home Medications Medication Instructions Recorded Confirmed Last Taken Type albuterol sulfate 90 mcg/actuation 2 puff inhalation Q4-6H PRN 12/11/22 05/01/23 Unknown History aerosol inhaler Shortness Of Breath Or Wheezing amitriptyline 75 mg tablet 75 mg PO BEDTIME 12/11/22 05/01/23 05/04/23 History anastrozole 1 mg tablet 1 mg PO DAILY 12/11/22 05/01/23 05/04/23 History atorvastatin 10 mg tablet 10 mg PO DAILY 12/11/22 05/01/23 05/04/23 History clonazepam 1 mg tablet 1.5 mg PO BEDTIME 12/11/22 05/01/23 05/04/23 History glucosamine HCl 500 mg tablet 1,500 mg PO DAILY 12/11/22 05/01/23 05/04/23 History hydrochlorothiazide 12.5 mg capsule 12.5 mg PO QAM 12/11/22 05/01/23 05/04/23 History ibuprofen 800 mg tablet 800 mg PO Q8H PRN Pain 12/11/22 05/01/23 Unknown History irbesartan 300 mg tablet 300 mg PO DAILY 12/11/22 05/01/23 05/04/23 History montelukast 10 mg tablet 10 mg PO BEDTIME 12/11/22 05/01/23 05/04/23 History omeprazole 40 mg capsule,delayed 40 mg PO BID 12/11/22 05/01/23 05/05/23 06:00 History release venlafaxine 37.5 mg 37.5 mg PO DAILY 12/11/22 05/01/23 05/04/23 History capsule,extended release 24 hr ziprasidone HCl 20 mg capsule 20 mg PO BID 12/11/22 05/01/23 05/04/23 History alpha-1 proteinase inhib.(hum) 1,000 mg IV QWEEK 04/24/23 05/01/23 Unknown History 1,000 mg intravenous solution (Prolastin-C) calcium carbonate 600 mg calcium 600 mg PO DAILY 04/24/23 05/01/23 05/04/23 History (1,500 mg) tablet (Calcium) cholecalciferol (vitamin D3) 50 50 mcg PO DAILY 04/24/23 05/01/23 05/04/23 History mcg (2,000 unit) capsule (Vitamin D3) docusate sodium 100 mg tablet 200 mg PO BID 04/24/23 05/01/23 05/04/23 History (Stool Softener) fluticasone fur. 100 mcg-umeclid 1 ea inhalation DAILY 04/24/23 05/01/23 05/05/23 06:00 History 62.5 mcg-vilant 25 mcg inhalat.powder (Trelegy Ellipta) isosorbide mononitrate 30 mg 30 mg PO DAILY 04/24/23 05/01/23 05/05/23 06:00 History tablet,extended release 24 hr multivitamin with minerals 1 tab PO DAILY 04/24/23 05/01/23 05/04/23 History (Hair,Skin and Nails tablet) omega 9-qny-eso-fish oil 1,000 mg 1 cap PO DAILY 04/24/23 05/01/23 05/04/23 History (120 mg-180 mg) capsule (Fish Oil) polyethylene glycol 3350 17 17 g PO DAILY PRN Constipation 04/24/23 05/01/23 05/04/23 History gram/dose oral powder (Miralax) loratadine 10 mg chewable tablet 10 mg PO DAILY 04/25/23 05/01/23 05/05/23 06:00 History (Claritin) Physical Exam Vital Signs and Narrative: Vital Signs: Last Vital Signs Temp 97.8 F 05/05/23 13:44 Pulse 68 05/05/23 13:44 Resp 16 05/05/23 13:44 BP 119/56 L 05/05/23 13:44 Pulse Ox 98 05/05/23 13:44 O2 Del Method Room Air 05/05/23 13:44 BMI result Body Mass Index 35.2 Appearing in no acute distress head is normocephalic atraumatic eyes pupils are PERRLA sclera is anicteric mouth throat mucous membranes are intact and moist neck is supple no lymphadenopathy, no JVD noted lung sounds are clear to auscultation heart regular rate rhythm, clear S1, S2 positive bowel sounds, abdomen is soft, nontender neuro patient is alert x3, no focal deficits left knee surgical dressing clean dry and intact, surgical incision of visualized Assessment and Plan (1) Left knee pain: Status: Acute Plan 67 year old women admitted by Orthopedic surgery and is status post left total knee arthroplasty Left total knee arthroplasty Management as per surgical team Pain management Hypertension Blood pressure on the softer side postoperative, restart hydrochlorothiazide when blood pressure allows Mental health Continue home medications Hyperlipidemia Continue statin Obstructive sleep apnea Continue CPAP History of left bundle-branch block Continue isosorbide GERD Continue PPI DVT prophylaxis as per admitting team Full code Medical consultation complete. Will sign off
--- NOTE | 2023-05-05 14:59 | PHA.MEDREC ---
Pharmacy Consult ? Medication Reconciliation Pharmacy has reviewed the medication reconciliation completed by nursing. Sylvia Fonseca, EzekielD
[2023-05-05] MEDS: HYDROmorphone HCl 0.5 MG/0.5 ML SYRINGE IVPUSH (16:03)
[2023-05-05] MEDS: ceFAZolin Sodium/Dextrose,Iso 2 GM/50 ML PIGGYBACK IV (16:04)
[2023-05-05] MEDS: oxyCODONE HCl Immed Release 5 MG TABLET PO (16:50)
[2023-05-05] MEDS: Acetaminophen 325 MG TABLET 650 MG PO (16:50)
[2023-05-05] MEDS: Aspirin 325 MG TABLET PO (16:50)
[2023-05-05] MEDS: ondansetron HCL 4 MG/2 ML VIAL IVPUSH (17:53)
[2023-05-05] MEDS: oxyCODONE HCl ER 10 MG TAB.ER.12H PO (20:02)
[2023-05-05] MEDS: Docusate Sodium 100 MG CAPSULE 200 MG PO (20:02)
[2023-05-05] MEDS: Gabapentin 100 MG CAPSULE PO (20:02)
[2023-05-05] MEDS: Omeprazole 40 MG CAPSULE.DR PO (20:03)
[2023-05-05] MEDS: Amitriptyline HCl 25 MG TABLET 75 MG PO (20:03)
[2023-05-05] MEDS: Ziprasidone 20 MG CAPSULE PO (20:03)
[2023-05-05] MEDS: methocarbamoL 750 MG TABLET PO (20:03)
[2023-05-05] MEDS: clonazePAM 0.5 MG TABLET 1.5 MG PO (20:03)
[2023-05-05] MEDS: 0.9 % Sodium Chloride Flush 3 ML SYRINGE IVFLUSH (20:04)
[2023-05-05] MEDS: Montelukast Sodium 10 MG TABLET PO (20:04)
[2023-05-05] MEDS: Celecoxib 200 MG CAPSULE PO (20:37)
[2023-05-06] VITALS (8 sets, daily range): BP systolic 128–153; BP diastolic 56–76; PULSE 83–95; RESP 16–19; TEMP 36.3–37; O2SAT 93–97
--- NOTE | ~2023-05-06 | XR_ITS ---
EXAMINATION: XR KNEE, LEFT CLINICAL INFORMATION: Status post left TKA. COMPARISON: Left knee 04/30/2023. TECHNIQUE: Two views of the left knee. FINDINGS: Prosthetic components of the total knee arthroplasty are appropriately aligned. No periprosthetic fracture. Gas from recent surgery is present in the joint and surrounding soft tissues. A joint effusion is present. XR/XR knee LT 2V IMPRESSION: Appropriate alignment of the left total knee arthroplasty.
[2023-05-06] MEDS: ceFAZolin Sodium/Dextrose,Iso 2 GM/50 ML PIGGYBACK IV ×2 (00:36→08:01)
[2023-05-06] MEDS: HYDROmorphone HCl 0.5 MG/0.5 ML SYRINGE IVPUSH ×3 (03:41→17:55)
[2023-05-06] MEDS: Aspirin 325 MG TABLET PO ×2 (05:25→17:55)
[2023-05-06] MEDS: Lactated Ringers 1,000 ML 100 ML IVCONT ×2 (05:25→14:26)
[2023-05-06] MEDS: oxyCODONE HCl Immed Release 5 MG TABLET PO ×4 (05:57→21:54)
[2023-05-06 06:37] LABS: MANUAL DIFF FLAG NO
[2023-05-06 06:50] LABS: Basophils Percent Auto 0.4 % (0-2); Eosinophils Absolute Auto 0.2 X10*3/uL (0.0-0.4); Hematocrit 29.1 % (37.0-47.0); Hemoglobin 9.9 g/dl (12.0-16.0); Imm Gran Abs Auto 0.05 X10*3/uL (0.00-0.03); Imm Gran Pct Auto 0.5 % (0.0-0.4); Lymphocytes Absolute Auto 0.8 X10*3/uL (1.2-4.9); Lymphocytes Percent Auto 7.8 % (20-40); Mean Corpuscular Hemoglobin 30.7 pg (27.0-33.0); Mean Corpuscular Volume 90.4 fL (80.0-98.0); Mean Platelet Volume 9.1 fL (9.4-12.3); Monocytes Absolute Auto 0.9 X10*3/uL (0.1-1.2); Monocytes Percent Auto 8.6 % (2-11); Neutrophils Absolute Auto 7.9 x10*3/uL (2.0-8.3); Neutrophils Percent Auto 80.7 % (45-73); Platelet Count 278 X10*3/uL (160-400); Red Blood Count 3.22 X10*6/uL (4.20-5.50); Red Cell Distribution Width 12.4 % (11.0-16.0); White Blood Count 9.8 X10*3/uL (4.8-10.8)
[2023-05-06 07:04] LABS: Anion Gap 11 (12-20); Blood Urea Nitrogen 9 mg/dL (9-16); Calcium 8.6 mg/dL (8.4-10.2); Carbon Dioxide 27 mmol/L (22-29); Chloride 102 mmol/L (96-108); Creatinine Clr Calc Pharmacy 81.2; Estimated Glomerular Filt Rate > 60; Glucose Fasting 127 mg/dL (60-99); Potassium 4.2 mmol/L (3.3-5.1); Sodium 136 mmol/L (135-145)
--- NOTE | 2023-05-06 07:37 | P.PNOP_ITS ---
Subjective Subjective Date of Service: 05/06/23 Interval history: POD 1 s/p LT TKA no overnight events resting in bed, managing pain well denies sob, cp, palpitations Physical Exam Vital Signs: Vital Signs: Last Vital Signs Temp 98.6 F 05/06/23 06:55 Pulse 95 05/06/23 06:55 Resp 18 05/06/23 06:55 BP 145/76 H 05/06/23 06:55 Pulse Ox 94 05/06/23 06:55 O2 Del Method Room Air 05/06/23 06:55 BMI result Body Mass Index 35.2 Const: General: cooperative, healthy appearing and no acute distress Resp: Effort & Inspection: normal respiratory effort and able to speak in complete sentences Cardio: Rate: regular rate Peripheral pulses: Peripheral pulses 2+ throughout GI: Palpation (GI): Soft to palpation Skin: General skin exam: no rashes or lesions noted Extrem: Other: bandage clean dry and intact. [place] intact. No erythema or joint effusion. Calf supple nontender. Neurovascularly intact. Procedures Date of Service Date of Service: 05/06/23 Progress Note: A&P Assessment and plan (1) Status post total left knee replacement: Status: Acute Assessment and Plan: * Continue pain mgmnt * Begin Aspirin for dvt ppx * begin PT for LT TKA * Dispo planning-Pending PT eval, pain mgmnt Need for continued inpatient stay: uncontrolled pain, pt eval Time Spent With Patient Time: Total time managing care of this patient today ____ minutes. Quality Stroke Does the patient have a stroke diagnosis?: No VTE Prior VTE?: No VTE Risk Level:: Surgical - very high VTE Device Contraindication: N/A - Device Ordered VTE Drug Contraindication: N/A - Med Ordered
[2023-05-06] MEDS: Fluticasone/Umeclidinium/Vilanterol 100/62.5/25 BLST.W.DEV 1 PUFF INHALE (07:46)
[2023-05-06] MEDS: Acetaminophen 325 MG TABLET 650 MG PO ×3 (07:59→21:54)
[2023-05-06] MEDS: Cholecalciferol (Vitamin D3) 25 MCG TABLET 50 MCG PO (07:59)
[2023-05-06] MEDS: Multivitamin TABLET 1 TAB PO (08:00)
[2023-05-06] MEDS: Docusate Sodium 100 MG CAPSULE 200 MG PO ×2 (08:00→20:08)
[2023-05-06] MEDS: Loratadine 10 MG TABLET PO (08:00)
[2023-05-06] MEDS: oxyCODONE HCl ER 10 MG TAB.ER.12H PO ×2 (08:00→20:08)
[2023-05-06] MEDS: Omeprazole 40 MG CAPSULE.DR PO ×2 (08:00→20:08)
[2023-05-06] MEDS: Anastrozole 1 MG TABLET PO (08:00)
[2023-05-06] MEDS: Isosorbide Mononitrate 30 MG TAB.ER.24H PO (08:00)
[2023-05-06] MEDS: Celecoxib 200 MG CAPSULE PO ×2 (08:00→20:08)
[2023-05-06] MEDS: Atorvastatin Calcium 10 MG TABLET PO (08:00)
[2023-05-06] MEDS: Valsartan 160 MG TABLET PO (08:00)
[2023-05-06] MEDS: HYDROmorphone HCl 0.5 MG/0.5 ML SYRINGE 0.25 MG IVPUSH (08:01)
[2023-05-06] MEDS: Ziprasidone 20 MG CAPSULE PO ×2 (08:07→20:08)
[2023-05-06] MEDS: Venlafaxine HCl ER 37.5 MG CAP.ER.24H PO (08:07)
--- NOTE | 2023-05-06 09:39 | MHC.CM.PN ---
PATIENT LIVES WITH SPOUSE/HCP AND HER DAUGHTER/HCP LIVES UPSTAIRS. HCP COPY REQUESTED FOR MEDICAL RECORD. SHE USES A CANE AT BASELINE. NO [facility] OR OTHER DME IN THE HOME. FAMILY TO TRANSPORT HOME AT [place], WHICH IS POTENTIALLY TOMORROW (05/07/23). REFERRALS TO BE PLACED IN PATIENT'S LOCALITY
--- NOTE | 2023-05-06 12:00 | MHC.CM.PN ---
PATIENT IS NOW INPATIENT STATUS UNDER MEDICARE. IMM DISCUSSED AND SIGNED. IMM 05/06 COPY IN CHART AND PATIENT HAS ORIGINAL
--- NOTE | 2023-05-06 12:55 | PHA.MEDREC ---
Pharmacy Consult ? Medication Reconciliation Pharmacy has REVIEWED the medication reconciliation.
--- NOTE | 2023-05-06 12:55 | HO.POSTANES ---
Post Anesthesia Evaluation Post Anesthesia Evaluation Date of Service: 05/06/23 Vital Signs: Vital Signs Temp Pulse Resp BP Pulse Ox O2 Del Method 05/06/23 08:01 19 05/06/23 07:48 95 18 05/06/23 06:55 98.6 F 95 18 145/76 H 94 Room Air 05/06/23 03:20 97.7 F 92 16 144/64 H 97 CPAP Anesthesia: Spinal and Nerve Block Mental Status: Awake Pain Control: Satisfactory Nausea/Vomiting: None Hydration: Adequate Anesthesia-Related Issues: No Anes. Related Issues
[2023-05-06] MEDS: Amitriptyline HCl 25 MG TABLET 75 MG PO (20:06)
[2023-05-06] MEDS: Gabapentin 100 MG CAPSULE PO (20:08)
[2023-05-06] MEDS: methocarbamoL 750 MG TABLET PO (20:08)
[2023-05-06] MEDS: clonazePAM 0.5 MG TABLET 1.5 MG PO (20:08)
[2023-05-06] MEDS: Montelukast Sodium 10 MG TABLET PO (20:08)
[2023-05-07] MEDS: HYDROmorphone HCl 0.5 MG/0.5 ML SYRINGE IVPUSH (02:24)
[2023-05-07 03:46] VITALS: BP 148/87; PULSE 91; RESP 18; TEMP 36.4; O2SAT 94
[2023-05-07] MEDS: Aspirin 325 MG TABLET PO (05:16)
[2023-05-07 05:42] LABS: MANUAL DIFF FLAG NO
[2023-05-07 05:49] LABS: Basophils Absolute Auto 0.1 X10*3/uL (0.0-0.2); Basophils Percent Auto 0.8 % (0-2); Eosinophils Absolute Auto 0.2 X10*3/uL (0.0-0.4); Eosinophils Percent Auto 2.9 % (0-4); Hematocrit 27.7 % (37.0-47.0); Hemoglobin 9.1 g/dl (12.0-16.0); Imm Gran Abs Auto 0.04 X10*3/uL (0.00-0.03); Imm Gran Pct Auto 0.7 % (0.0-0.4); Lymphocytes Absolute Auto 0.4 X10*3/uL (1.2-4.9); Lymphocytes Percent Auto 6.6 % (20-40); Mean Corpuscular HGB Conc 32.9 g/dl (31.0-35.0); Mean Corpuscular Hemoglobin 29.9 pg (27.0-33.0); Mean Corpuscular Volume 91.1 fL (80.0-98.0); Mean Platelet Volume 8.9 fL (9.4-12.3); Monocytes Absolute Auto 0.7 X10*3/uL (0.1-1.2); Monocytes Percent Auto 12.4 % (2-11); Neutrophils Absolute Auto 4.5 x10*3/uL (2.0-8.3); Neutrophils Percent Auto 76.6 % (45-73); Platelet Count 231 X10*3/uL (160-400); Red Blood Count 3.04 X10*6/uL (4.20-5.50); Red Cell Distribution Width 12.6 % (11.0-16.0); White Blood Count 5.9 X10*3/uL (4.8-10.8)
[2023-05-07 06:07] LABS: Anion Gap 11 (12-20); Blood Urea Nitrogen 7 mg/dL (9-16); Calcium 8.8 mg/dL (8.4-10.2); Carbon Dioxide 25 mmol/L (22-29); Chloride 105 mmol/L (96-108); Creatinine Clr Calc Pharmacy 84.5; Estimated Glomerular Filt Rate > 60; Glucose Fasting 122 mg/dL (60-99); Potassium 3.8 mmol/L (3.3-5.1); Sodium 137 mmol/L (135-145)
[2023-05-07] MEDS: Isosorbide Mononitrate 30 MG TAB.ER.24H PO (07:37)
[2023-05-07] MEDS: hydroCHLOROthiazide 12.5 MG TABLET PO (07:37)
[2023-05-07] MEDS: Anastrozole 1 MG TABLET PO (07:37)
[2023-05-07] MEDS: Atorvastatin Calcium 10 MG TABLET PO (07:37)
[2023-05-07] MEDS: oxyCODONE HCl ER 10 MG TAB.ER.12H PO (07:37)
[2023-05-07] MEDS: Valsartan 160 MG TABLET PO (07:37)
[2023-05-07] MEDS: Loratadine 10 MG TABLET PO (07:37)
[2023-05-07] MEDS: Docusate Sodium 100 MG CAPSULE 200 MG PO (07:38)
[2023-05-07] MEDS: Celecoxib 200 MG CAPSULE PO (07:38)
[2023-05-07] MEDS: Cholecalciferol (Vitamin D3) 25 MCG TABLET 50 MCG PO (07:38)
[2023-05-07] MEDS: Multivitamin TABLET 1 TAB PO (07:38)
[2023-05-07] MEDS: Acetaminophen 325 MG TABLET 650 MG PO (07:38)
[2023-05-07] MEDS: oxyCODONE HCl Immed Release 5 MG TABLET PO ×2 (07:38→11:40)
[2023-05-07] MEDS: Omeprazole 40 MG CAPSULE.DR PO (07:38)
[2023-05-07 07:44] VITALS: BP 129/66; PULSE 89; RESP 18; TEMP 36.7; O2SAT 95
[2023-05-07] MEDS: Fluticasone/Umeclidinium/Vilanterol 100/62.5/25 BLST.W.DEV 1 PUFF INHALE (07:50)
--- NOTE | 2023-05-07 07:51 | W.MHC.F2F ---
Service Date Service Date: 05/07/23 Encounter Date of encounter: 05/07/23 Reasons for Services Signs and symptoms assessed: s/p LTHA. Pt. is considered homebound due to recent surgery. Unable to drive, poor balance, poor gait mechanics. Reason for physical therapy: home safety and mobility, therapeutic exercises, restore joint function, gait/transfer training, assess need for DME and ADL training Reason for occupational therapy: home safety and mobility, therapeutic exercises, restore joint function, gait/transfer training, assess need for DME and ADL training Homebound: Leaving the home is medically contraindicated at this time without the asist of a device and/or another person due th the listed conditions above and below. Reason homebound: unsteady gait / fall risk, pain with ambulation, pain with transfers, poor balance / fall risk and unable to drive Certification: Based on the above findings, I certify that this patient is confined to the home and needs intermittent halfway care, physical therapy and/or speech therapy, or continues to need occupational therapy. The patient is under my care, and I have initiated the establishment of the plan of care. The patient will be followed by a physician who will periodically review the plan of care. Time Spent With Patient Time: Total time managing care of this patient today ____ minutes.
--- NOTE | 2023-05-07 07:53 | PM.DS ---
DS: Providers Provider Date of Service: 05/07/23 Date of admission: 05/06/23 11:45 Primary care physician: Dario Cherry MD Consults: 05/05/23 14:16 Consult to Hospitalist Routine Comment: Consulting Provider: Hospitalist Reason For Exam: Routine medical management DS: Diagnosis Discharge Diagnosis (1) Status post total left knee replacement: Status: Acute DS: Summary Hospital Course Hospital Course: The patient underwent a successful left total knee arthroplasty, they were transferred to PACU and then to the floor to recover. During their stay, their vitals were stable, afebrile at 97.6. Labs were unremarkable, H/H 9.1/27.7. POD 1 they were started on Aspirin 325mg po bid for DVT ppx, they also received Physical Therapy services twice a day. Prior to discharge, their dressing was changed, incision clean dry and intact, new Aquacel dressing applied and the plan was to be discharged home with VNA services. Time Attestation Discharge coordination time: Less than 30 minutes Quality: Safe Use of Opioids Does Pt have an Active Cancer Diagnosis on the Problem List?: No Quality: Stroke Does the patient have a stroke diagnosis?: No Physical Exam Vital Signs: Vital Signs: Last Vital Signs Temp 98.1 F 05/07/23 07:44 Pulse 89 05/07/23 07:44 Resp 18 05/07/23 07:44 BP 129/66 05/07/23 07:44 Pulse Ox 95 05/07/23 07:44 O2 Del Method Room Air 05/07/23 07:44 BMI result Body Mass Index 35.2 Const: General: cooperative, healthy appearing and no acute distress Resp: Effort & Inspection: normal respiratory effort and able to speak in complete sentences Cardio: Rate: regular rate Peripheral pulses: Peripheral pulses 2+ throughout GI: Palpation (GI): Soft to palpation Skin: General skin exam: no rashes or lesions noted Extrem: Other: Left knee bandage clean dry and intact. [place] intact. No erythema or joint effusion. Calf supple nontender. Neurovascularly intact. DS: Data Data Completed and Pending Pending studies at discharge: Pending at discharge 05/05/23 11:32 Surgical [PTH] Routine Labs on day of discharge: Laboratory Results - last 24 hr 05/07/23 05:20 WBC 5.9 RBC 3.04 L Hgb 9.1 L Hct 27.7 L MCV 91.1 MCH 29.9 MCHC 32.9 RDW 12.6 Plt Count 231 MPV 8.9 L Immature Gran % (Auto) 0.7 H Neut % (Auto) 76.6 H Lymph % (Auto) 6.6 L [place] % (Auto) 12.4 H Eos % (Auto) 2.9 Baso % (Auto) 0.8 Lymph # (Auto) 0.4 L [place] # (Auto) 0.7 Eos # (Auto) 0.2 Baso # (Auto) 0.1 Abs Immat Gran (auto) 0.04 H Absolute Neuts (auto) 4.5 Absolute Nucleated RBC 0.000 Nucleated RBC % (auto) 0.0 Sodium 137 Potassium 3.8 Chloride 105 Carbon Dioxide 25 Anion Gap 11 L BUN 7 L Creatinine 0.74 Estim Creat Clear Calc 84.5 Estimated GFR > 60 Fasting Glucose 122 H Calcium 8.8 Discharge Plan Discharge Anticipated Discharge Date/Time: 05/07/23 07:50 Patient Disposition: Home Health Service Discharge Diagnosis: s/p LTKA Referrals: Heidi Chua PA-C [Physician Front Desk Officer] - 05/22/23 1:15 pm Discharge Medications: New acetaminophen 325 mg Tablet 650 mg PO Q6H PRN (Reason: Pain, Mild (Pain Scale 1-3)) 30 Days Qty: 240 0RF methocarbamol 750 mg Tablet 750 mg PO BEDTIME 7 Days Qty: 7 0RF aspirin 325 mg Tablet 325 mg PO Q12H 42 Days Qty: 84 0RF celecoxib 200 mg Capsule 200 mg PO BID 30 Days Qty: 60 0RF gabapentin 100 mg Capsule 100 mg PO BEDTIME 7 Days Qty: 7 0RF oxycodone 5 mg Tablet 5 mg PO Q4H PRN (Reason: Pain, Moderate(Pain Scale 4-6)) 7 Days Qty: 42 0RF Rx Instructions: Partial Fill upon patient request. Continued isosorbide mononitrate 30 mg tablet extended release 24 hr 30 mg PO DAILY calcium carbonate [Calcium 600] 600 mg calcium (1,500 mg) Tablet 600 mg PO DAILY Hair,Skin and Nails Tablet 1 tab PO DAILY polyethylene glycol 3350 [Miralax] 17 gram/dose Powder 17 g PO DAILY PRN (Reason: Constipation) docusate sodium [Stool Softener] 100 mg Tablet 200 mg PO BID cholecalciferol (vitamin D3) [Vitamin D3] 50 mcg (2,000 unit) Capsule 50 mcg PO DAILY omega 5-lqz-gyg-fish oil [Fish Oil] 1,000 mg (120 mg-180 mg) Capsule 1 cap PO DAILY Trelegy Ellipta 100-62.5-25 mcg blister with device 1 ea inhalation DAILY Prolastin-C 1,000 mg Recon Soln 1,000 mg IV QWEEK Claritin 10 mg Tablet,Chewable 10 mg PO DAILY atorvastatin 10 mg tablet 10 mg PO DAILY ziprasidone HCl 20 mg capsule 20 mg PO BID venlafaxine 37.5 mg capsule,extended release 24hr 37.5 mg PO DAILY irbesartan 300 mg tablet 300 mg PO DAILY clonazepam 1 mg tablet 1.5 mg PO BEDTIME omeprazole 40 mg capsule,delayed release(DR/EC) 40 mg PO BID montelukast 10 mg tablet 10 mg PO BEDTIME anastrozole 1 mg tablet 1 mg PO DAILY albuterol sulfate 90 mcg/actuation HFA aerosol inhaler 2 puff inhalation Q4-6H PRN (Reason: Shortness Of Breath Or Wheezing) hydrochlorothiazide 12.5 mg capsule 12.5 mg PO QAM amitriptyline 75 mg tablet 75 mg PO BEDTIME glucosamine HCl 500 mg tablet 1,500 mg PO DAILY Rx Instructions: administer with a meal Discontinued oxycodone-acetaminophen [Percocet] 5-325 mg tablet 1 tab PO Q8H PRN (Reason: pain) Qty: 30 0RF Rx Instructions: Partial Fill upon patient request. ibuprofen 800 mg tablet 800 mg PO Q8H PRN (Reason: Pain) Discharge Orders: Discharge Order (Routine); Ordered 05/07/23 Ordered By: Heidi Chua Diet: Advance to usual diet Activity on Discharge: Use cane or walker Stand Alone Forms: Patient Portal Discharge page Activity Restrictions/Additional Instructions: Physical Therapy for ROM 0-120, quad strength, gait training. Use walker for ambulation Limit stair climbing, No shower, No tub bath, No driving Continue anticoagulant Keep Aquacel dressing clean, dry and intact. Follow up with orthopedics in 2 weeks Care Plan Goals: Restore fxn to left hip Health Concerns: None Plan of Treatment: Physical Therapy for total hip arthroplasty: no precautions, gait training, ROM, strength Limit stair climbing No showering, no tub bath-keep dressing clean, dry and intact No driving x6 weeks Continue Aspirin 325mg tabs twice a day x 4 weeks Follow up with [facility] [place] [place] [facility] in 2 weeks Assessment: stable for discharge
--- NOTE | 2023-05-07 07:55 | P.F2F_ITS ---
Service Date Service Date: 05/07/23 Encounter Date of encounter: 05/07/23 Reasons for Services Signs and symptoms assessed: s/p LTKA. Pt. is considered homebound due to recent surgery. Unable to drive, poor balance, poor gait mechanics. Reason for physical therapy: home safety and mobility, therapeutic exercises, restore joint function, gait/transfer training, assess need for DME and ADL training Homebound: Leaving the home is medically contraindicated at this time without the asist of a device and/or another person due th the listed conditions above and below. Reason homebound: unsteady gait / fall risk, leg weakness, pain with ambulation, pain with transfers, poor balance / fall risk and unable to drive Certification: Based on the above findings, I certify that this patient is confined to the home and needs intermittent long term care, physical therapy and/or speech therapy, or continues to need occupational therapy. The patient is under my care, and I have initiated the establishment of the plan of care. The patient will be followed by a physician who will periodically review the plan of care. Time Spent With Patient Time: Total time managing care of this patient today ____ minutes.
[2023-05-07 08:00] VITALS: PULSE 89; RESP 18; O2SAT 98
[2023-05-07] MEDS: Ziprasidone 20 MG CAPSULE PO (09:02)
[2023-05-07] MEDS: Venlafaxine HCl ER 37.5 MG CAP.ER.24H PO (09:02)
--- NOTE | 2023-05-07 09:12 | MHC.CM.PN ---
order for home w/home health services. Notified [facility] via [facility] that Pt is headed home today. Per allscripts, [facility] has already indicated they are signing Pt on to service tomorrow 05/08/23.
== END 2023-05-07 11:49 | disposition home health service (06) | DRG 470 ==
LOC: HO.SSS 11:49 → HO.S3 11:49
PROVIDERS: Orthopaedic Surgery; Admitting Provider Physician Assistant; PCP Family Medicine; Visit Provider Physician Assistant
PROC: (CPT 27447; principal; 2023-05-05 10:30)
DX: M17.12 Unilateral primary osteoarthritis, left knee (principal); G47.33 Obstructive sleep apnea (adult) (pediatric); G89.18 Other acute postprocedural pain; I10 Essential (primary) hypertension; K21.9 Gastro-esophageal reflux disease without esophagitis; I44.7 Left bundle-branch block, unspecified; Z87.891 Personal history of nicotine dependence; Z79.899 Other long term (current) drug therapy
CPT/HCPCS: 27447; 36415; 73560; 80048; 85025; 86850; 86900; 86901; 87640; 87641; 88305; 88311; 94640; 97110; 97116; 97162; 97530; 99221; C1776; J0665; J0690; J1170; J2250; J2405; J2704; J3370; J3371; J7120

== ENCOUNTER 2023-05-22 12:08 | Outpatient (REF) | payer MEDICARE, MEDICAID, SELFPAY | END 2023-05-22 12:09 | disposition home or self-care (01) | LOC: HO.HOSX 12:08 | PROVIDERS: Visit Provider Physician Assistant | DX: Z13.89 Encounter for screening for other disorder (principal) ==

== ENCOUNTER 2023-05-22 12:56 | Outpatient (AMB) | payer MEDICARE, MEDICAID, SELFPAY ==
--- NOTE | 2023-05-22 13:01 | A.OFFVIS_ITS ---
Intake Intake Visit Reasons: PO- LT TKA 05/05/23 Intake Note: This a 68 year old female who presents for a left TKA with on 05/05/23. She reports things are going well. Allergies morphine Allergy (Severe, Verified 05/22/23 13:03) itchy rash Medication List - Last Reconciled 05/22/23 by Hawa Lou, RN acetaminophen 650 mg (2 x 325 mg) PO Q6H PRN 30 days albuterol sulfate 90 mcg/actuation 2 puffs inhalation Q4-6H PRN alpha-1 proteinase inhib.(hum) (Prolastin-C) 1,000 mg IV QWEEK amitriptyline 75 mg PO BEDTIME anastrozole 1 mg PO DAILY aspirin 325 mg PO Q12H 42 days atorvastatin 10 mg PO DAILY calcium carbonate (Calcium) 600 mg PO DAILY celecoxib 200 mg PO BID 30 days cholecalciferol (vitamin D3) (Vitamin D3) 50 mcg PO DAILY clonazepam 1.5 mg PO BEDTIME docusate sodium (Stool Softener) 200 mg PO BID [id number]-rpfmyfxmk-jdzakedw 100-62.5-25 mcg (Trelegy Ellipta) 1 ea inhalation DAILY gabapentin 100 mg PO BEDTIME 7 days glucosamine HCl 1,500 mg PO DAILY hydrochlorothiazide 12.5 mg PO QAM irbesartan 300 mg PO DAILY isosorbide mononitrate ER 30 mg PO DAILY loratadine (Claritin) 10 mg PO DAILY methocarbamol 750 mg PO BEDTIME 7 days montelukast 10 mg PO BEDTIME multivitamin with minerals (Hair,Skin and Nails tablet) 1 tab PO DAILY omega 6-jxo-jih-fish oil 1,000 mg (120 mg-180 mg) (Fish Oil) 1 cap PO DAILY omeprazole 40 mg PO BID oxycodone 5 mg PO Q6H PRN 7 days polyethylene glycol 3350 (Miralax) 17 grams PO DAILY PRN venlafaxine ER 37.5 mg PO DAILY walker Folding Front wheeled walker ziprasidone HCl 20 mg PO BID HPI PO- LT TKA 05/05/23 HPI Details 68-year-old female who presents in the o ffice today 2 weeks status post left total knee arthroplasty, which was performed on 05/05/[address] Culp. [facility] Medical History Left bundle branch block (LBBB) Osteoarthritis Hx of breast cancer GERD (gastroesophageal reflux disease) Anxiety Depression Asthma Aortic stenosis, mild Elevated cholesterol HTN (hypertension) Hx of concussion BOUBACAR on CPAP Surgical History History of lumpectomy of right breast Hx of tonsillectomy Hx of hysterectomy, total Hx of bilateral cataract extraction History of bilateral carpal tunnel release Hx of colonoscopy Status post right knee replacement History of arthroscopy of left shoulder Social History Household Members: Spouse Housing: House Are you a primary housekeeper caregiver to a significant other at home: No Do you presently have visiting nurse or other home services: No Patient Tobacco Use Status: Former Tobacco user Quit Date: Tobacco use type: Cigar Second Hand Smoke Exposure: No Advance Directives Date on File: 02/14/23 Review of Systems Const All systems reviewed & are unremarkable except as noted in HPI and below Physical Exam Const General: cooperative, healthy appearing and no acute distress Resp Effort & Inspection: normal respiratory effort and able to speak in complete sentences Cardio Rate: regular rate Peripheral pulses: Peripheral pulses 2+ throughout GI Palpation (GI): Soft to palpation Skin Lesions: no lesions Rashes: no rashes Extrem Other: Left knee: Incision sites is clean, dry, and intact. [place] intact. No surrounding erythema or drainage. No signs of infection. ROM is 0-120 degrees. NVI. Assessment & Plan Assessment & Plan (1) Status post total left knee replacement: Comment: 05/05/2023 Code(s): Z96.652 - Presence of left artificial knee joint Plan Ms. Cuenca is a 68-year-old female who presents in the office today 2 weeks status post left total knee arthroplasty, which was performed on 05/05/[address] Culp. [place] were removed and steri-stripes were applied. The patient will continue to work with home physical therapy. Follow up will be in [address] Culp, or sooner if needed. The patient was intending to obtain x-rays prior to leaving the office today. However, she left before x-rays were obtained, therefore, we will obtain x-rays at her next appointment. Orders: Orders XR knee standing BI Today M25.569 - Pain in unspecified knee XR knee LT 2V Today M25.569 - Pain in unspecified knee PT Evaluation and Treatment Today Z96.652 - Presence of left artificial knee joint Patient Instructions: Scribed for Heidi Chua PA-C by Nataliia Meeks medical detail representative, on 05/22/2023 at 12:58 pm, EST. Coding Level of Care Code Global (11210) Diagnoses Status post total left knee replacement Z96.652
== END 2023-05-22 13:56 | disposition home or self-care (01) ==
PROVIDERS: PCP Family Medicine; Visit Provider Physician Assistant
DX: Z96.652 Presence of left artificial knee joint (principal)
CPT/HCPCS: 99024

== ENCOUNTER 2023-06-18 13:40 | Outpatient (AMB) | payer MEDICARE, MEDICAID, SELFPAY ==
--- NOTE | 2023-06-18 13:47 | MHC.OFFVIS ---
Intake Intake Visit Reasons: PO- LT TKA 05/05/23 Intake Note: Maria Guadalupe a 68 year old female presents today for a post operative left TKA with on 05/05/23. She reports mild to moderate discomfort in her left knee. She denies any fevers or chills. The patient states that she was getting into bed approximately 1 week ago when she felt a ?hole? in the mid to proximal aspect of her left thigh. She continues with her physical therapy. She does walk with a cane when she is out of her home. Allergies morphine Allergy (Severe, Verified 06/18/23 13:53) itchy rash Medication List - Last Reconciled 06/18/23 by Kvng Culp MD acetaminophen 650 mg (2 x 325 mg) PO Q6H PRN 30 days albuterol sulfate 90 mcg/actuation 2 puffs inhalation Q4-6H PRN alpha-1 proteinase inhib.(hum) (Prolastin-C) 1,000 mg IV QWEEK amitriptyline 75 mg PO BEDTIME anastrozole 1 mg PO DAILY aspirin 325 mg PO Q12H 42 days atorvastatin 10 mg PO DAILY calcium carbonate (Calcium) 600 mg PO DAILY celecoxib 200 mg PO BID 30 days cholecalciferol (vitamin D3) (Vitamin D3) 50 mcg PO DAILY clonazepam 1.5 mg PO BEDTIME docusate sodium (Stool Softener) 200 mg PO BID [id number]-pzhrudkua-czkvnfjv 100-62.5-25 mcg (Trelegy Ellipta) 1 ea inhalation DAILY gabapentin 100 mg PO BEDTIME 7 days glucosamine HCl 1,500 mg PO DAILY hydrochlorothiazide 12.5 mg PO QAM irbesartan 300 mg PO DAILY isosorbide mononitrate ER 30 mg PO DAILY loratadine (Claritin) 10 mg PO DAILY methocarbamol 750 mg PO BEDTIME 7 days montelukast 10 mg PO BEDTIME multivitamin with minerals (Hair,Skin and Nails tablet) 1 tab PO DAILY omega 9-hiv-rlm-fish oil 1,000 mg (120 mg-180 mg) (Fish Oil) 1 cap PO DAILY omeprazole 40 mg PO BID oxycodone 5 mg PO Q6H PRN 7 days polyethylene glycol 3350 (Miralax) 17 grams PO DAILY PRN venlafaxine ER 37.5 mg PO DAILY walker Folding Front wheeled walker ziprasidone HCl 20 mg PO BID PFSH Medical History Left bundle branch block (LBBB) Osteoarthritis Hx of breast cancer GERD (gastroesophageal reflux disease) Anxiety Depression Asthma Aortic stenosis, mild Elevated cholesterol HTN (hypertension) Hx of concussion BOUBACAR on CPAP Surgical History History of lumpectomy of right breast Hx of tonsillectomy Hx of hysterectomy, total Hx of bilateral cataract extraction History of bilateral carpal tunnel release Hx of colonoscopy Status post right knee replacement History of arthroscopy of left shoulder Social History Household Members: Spouse Housing: House Are you a primary livestock caretaker to a significant other at home: No Do you presently have visiting nurse or other home services: No Patient Tobacco Use Status: Former Tobacco user Quit Date: Tobacco use type: Cigar Second Hand Smoke Exposure: No Advance Directives Date on File: 02/14/23 Physical Exam Const Other: Well-nourished well-developed very friendly female awake alert and oriented x3 in no acute distress Extrem Other: Left knee examination shows that the surgical incision is well healed, there are 2 small eschars along the mid aspect of the incision, no obvious suture material, no erythema, full active extension and flexion to 115 degrees with minimal discomfort, tenderness along the mid aspect of her quad muscle, her thigh compartments are soft Assessment & Plan Assessment & Plan (1) Status post total left knee replacement: Comment: 05/05/2023 DR Code(s): Z96.652 - Presence of left artificial knee joint Plan Mrs. Cuenca continues to do well after undergoing left total knee replacement surgery on 05/05/2023. She will continue with her physical therapy exercises. She does have discomfort in her left eye most likely due to a quad muscle strain. Activity modifications were discussed at length with the patient. She does know to take antibiotics before any dental work. She will contact me prior to her follow-up appointment in 1 month should her symptoms worsen in any way. Feel free to call me at any time should questions regarding her orthopedic management arise. Coding Level of Care Code Global (14248) Diagnoses Status post total left knee replacement Z96.652
== END 2023-06-18 14:03 | disposition home or self-care (01) ==
PROVIDERS: PCP Family Medicine; Visit Provider Orthopaedic Surgery
DX: Z96.652 Presence of left artificial knee joint (principal)
CPT/HCPCS: 99024

== ENCOUNTER → 2023-06-18 13:40 | Outpatient (BNVA) | payer MEDICARE, MEDICAID, SELFPAY | PROVIDERS: PCP Family Medicine; Visit Provider Orthopaedic Surgery | DX: Z47.1 Aftercare following joint replacement surgery (principal); Z96.652 Presence of left artificial knee joint | CPT/HCPCS: 99212 ==

== ENCOUNTER 2023-07-01 10:44 | Outpatient (REF) | payer MEDICARE, MEDICAID, SELFPAY ==
--- NOTE | ~2023-07-01 | XR_ITS ---
EXAMINATION: XR LUMBOSACRAL SPINE CLINICAL INFORMATION: Low back COMPARISON: None available. TECHNIQUE: Three views of the lumbosacral spine. FINDINGS: Vertebral bodies are well aligned there are multilevel degenerative changes with narrowing of L2-L3 intervertebral disc space with marginal spurring and grade 1 anterolisthesis of L4 over L5 and vacuum phenomenon. There is mild levoscoliosis. There are facets arthropathy at the level of L5-S1 and L5-S1. Pedicles are preserved. Soft tissues unremarkable. XR/XR lumbar spine 2-3V IMPRESSION: Multilevel degenerative changes with grade 1 anterolisthesis of L4 over L5.
--- NOTE | ~2023-07-01 | XR_ITS ---
EXAMINATION: XR PELVIS CLINICAL INFORMATION: Pain in the left hip COMPARISON: X-ray lumbar sacral spine 07/01/2023 TECHNIQUE: AP view of the pelvis. FINDINGS: Severe osteoarthritis of the left hip with a yraj-zp-eiwy appearance throughout with marginal osteophytes and subchondral sclerosis. Right hip: There is severe osteoarthritis with marked joint space narrowing throughout with a near tusg-gf-gouq appearance along with marginal osteophytes. Remaining bone and joints of the pelvis are normal. Incidental note made of spondylosis of the partially visualized lumbar sacral spine. See dedicated x-ray lumbar sacral spine for further details. XR/XR pelvis 1-2V IMPRESSION: LEFT HIP: Severe osteoarthritis. RIGHT HIP: Severe osteoarthritis.
== END 2023-07-01 10:45 | disposition home or self-care (01) ==
LOC: HO.HOSX 10:44
PROVIDERS: Visit Provider Orthopaedic Surgery
DX: M25.552 Pain in left hip (principal); M54.50 Low back pain, unspecified
CPT/HCPCS: 72100; 72170; 99212

== ENCOUNTER 2023-07-01 11:25 | Outpatient (AMB) | payer MEDICARE, MEDICAID, SELFPAY ==
--- NOTE | 2023-07-01 11:27 | MHC.OFFVIS ---
Intake Vital Signs 07/01/23 11:42 Height 5 ft 5 in Weight 206 lb BMI 34.3 Intake Visit Reasons: NewProb-Left Hip Pain Intake Note: Maria Guadalupe is a 68 year old female who presents with Left hip pain as well as intermittent discomfort in her low back. Patient reports that she had fallen the the left hip March 2023. She describes her left hip pain as sharp in nature. Most of the pain is located within her left groin. She denies any numbness or tingling in either of her legs. She has been walking with a cane because of her left hip pain. She did undergo left total knee replacement surgery on 05/05/2023. She reports minimal discomfort in her left knee. She denies any fevers or chills. Allergies morphine Allergy (Severe, Verified 07/01/23 11:45) itchy rash Medication List - Last Reconciled 07/01/23 by Kvng Culp MD acetaminophen 650 mg (2 x 325 mg) PO Q6H PRN 30 days albuterol sulfate 90 mcg/actuation 2 puffs inhalation Q4-6H PRN alpha-1 proteinase inhib.(hum) (Prolastin-C) 1,000 mg IV QWEEK amitriptyline 75 mg PO BEDTIME anastrozole 1 mg PO DAILY aspirin 325 mg PO Q12H 42 days atorvastatin 10 mg PO DAILY calcium carbonate (Calcium) 600 mg PO DAILY celecoxib 200 mg PO BID 30 days cholecalciferol (vitamin D3) (Vitamin D3) 50 mcg PO DAILY clonazepam 1.5 mg PO BEDTIME docusate sodium (Stool Softener) 200 mg PO BID [id number] 100-62.5-25 mcg (Trelegy Ellipta) 1 ea inhalation DAILY gabapentin 100 mg PO BEDTIME 7 days glucosamine HCl 1,500 mg PO DAILY hydrochlorothiazide 12.5 mg PO QAM irbesartan 300 mg PO DAILY isosorbide mononitrate ER 30 mg PO DAILY loratadine (Claritin) 10 mg PO DAILY methocarbamol 750 mg PO BEDTIME 7 days montelukast 10 mg PO BEDTIME multivitamin with minerals (Hair,Skin and Nails tablet) 1 tab PO DAILY omega [id number]-ufy-fish oil 1,000 mg (120 mg-180 mg) (Fish Oil) 1 cap PO DAILY omeprazole 40 mg PO BID oxycodone 5 mg PO Q8H PRN polyethylene glycol 3350 (Miralax) 17 grams PO DAILY PRN venlafaxine ER 37.5 mg PO DAILY walker Folding Front wheeled walker ziprasidone HCl 20 mg PO BID PFSH Medical History Left bundle branch block (LBBB) Osteoarthritis Hx of breast cancer GERD (gastroesophageal reflux disease) Anxiety Depression Asthma Aortic stenosis, mild Elevated cholesterol HTN (hypertension) Hx of concussion BOUBACAR on CPAP Surgical History History of lumpectomy of right breast Hx of tonsillectomy Hx of hysterectomy, total Hx of bilateral cataract extraction History of bilateral carpal tunnel release Hx of colonoscopy Status post right knee replacement History of arthroscopy of left shoulder Social History Household Members: Spouse Housing: House Are you a primary plant care worker to a significant other at home: No Do you presently have visiting nurse or other home services: No Patient Tobacco Use Status: Former Tobacco user Quit Date: Tobacco use type: Cigar Second Hand Smoke Exposure: No Advance Directives Date on File: 02/14/23 Physical Exam Vital Signs: BMI result Body Mass Index 34.3 Const Other: Well-nourished well-developed very friendly female awake alert and oriented x3 in no acute distress Back/Spine/Pelvis Other: Low back examination shows bilateral paraspinal muscle tenderness, negative straight leg raise bilaterally at 70 degrees Extrem Other: Left hip examination shows decreased range of motion when compared to her right hip, pain with range of motion, no tenderness over her bursa Results Reviewed Results Reviewed: X-rays of the patient's lumbar spine show moderate diffuse degenerative disc disease, no acute bony abnormalities X-rays of the patient's left hip show severe joint space narrowing, subchondral sclerosis, no acute bony abnormalities Assessment & Plan Assessment & Plan (1) Low back pain: Code(s): M54.50 - Low back pain, unspecified (2) Left hip pain: Code(s): M25.552 - Pain in left hip Plan Ms. Cuenca presents with progressively worsening left hip pain due to severe degenerative joint disease as well as low back pain due to degenerative disc disease. I had a lengthy discussion with the patient regarding the treatment options. Patient wishes to hold off on further surgery for now. I agree with this plan. Activity modifications were discussed at length with the patient. I did refill the patient's prescription for oxycodone. She does know to take antibiotics before any dental work. She will contact me prior to her follow-up appointment in 6 weeks should her symptoms worsen in any way. Feel free to call me at any time should questions regarding her orthopedic management arise. I spent 22 minutes in reviewing the patient's records and imaging studies, seeing the patient and documenting in the medical record. Orders: Orders XR pelvis 1-2V Today M25.552 - Pain in left hip XR lumbar spine 2-3V Today M54.50 - Low back pain, unspecified Medications: Refilled oxycodone Partial Fill upon patient request. 5 mg PO Q8H PRN 30 tabs 0RF pain Coding Level of Care Code Est Pt Level 2 (93647) Diagnoses Low back pain M54.50 Left hip pain M25.552
[2023-07-01 11:42] VITALS: BMI 34.3
== END 2023-07-01 12:07 | disposition home or self-care (01) ==
PROVIDERS: PCP Family Medicine; Visit Provider Orthopaedic Surgery
DX: M25.552 Pain in left hip (principal); M54.50 Low back pain, unspecified
CPT/HCPCS: 99213

== ENCOUNTER 2023-07-23 14:17 | Outpatient (AMB) | payer MEDICARE, MEDICAID, SELFPAY ==
[2023-07-23 14:19] VITALS: BMI 34.3
--- NOTE | 2023-07-23 14:19 | MHC.OFFVIS ---
Intake Vital Signs 07/23/23 14:19 Height 5 ft 5 in Weight 206 lb BMI 34.3 Intake Visit Reasons: PO- LT TKA 05/05/23 , Left hip pain Intake Note: Maria Guadalupe is a 68 year old female who presents with complaints of progressively worsening left hip pain. She describes her pain as sharp and severe in nature, 04/01. Her pain has gotten worse over the last year in spite of continued non operative treatments. The patient did undergo left total knee replacement surgery on 05/05/2023. She reports minimal discomfort in her left knee. She denies any fevers or chills. She has done physical therapy exercises for her hip which aggravated her pain. She has also tried Tylenol, anti-inflammatory medicines and oxycodone which gave her minimal relief. The patient has difficulty walking even short distances because of her left hip pain. She does walk with a cane. At this point the patient's left hip pain is interfering with her activities of daily living and her ability to sleep well through the night. Allergies morphine Allergy (Severe, Verified 07/23/23 14:22) itchy rash PFSH Medical History Left knee pain Left bundle branch block (LBBB) Osteoarthritis Hx of breast cancer GERD (gastroesophageal reflux disease) Anxiety Depression Asthma Aortic stenosis, mild Elevated cholesterol HTN (hypertension) Hx of concussion BOUBACAR on CPAP Surgical History History of lumpectomy of right breast Hx of tonsillectomy Hx of hysterectomy, total Hx of bilateral cataract extraction History of bilateral carpal tunnel release Hx of colonoscopy Status post right knee replacement History of arthroscopy of left shoulder Social History Household Members: Spouse Housing: House Are you a primary day care aide to a significant other at home: No Do you presently have visiting nurse or other home services: No Patient Tobacco Use Status: Former Tobacco user Quit Date: Tobacco use type: Cigar Second Hand Smoke Exposure: No Advance Directives Date on File: 02/14/23 Physical Exam Vital Signs: BMI result Body Mass Index 34.3 Const Other: Well-nourished well-developed very friendly female awake alert and oriented x3 in no acute distress Extrem Other: Bilateral lower extremity examination shows good capillary refill, no skin lesions noted, normal sensation light touch Left knee examination shows that the surgical incision is well healed, no erythema, full active extension and flexion to 120 degrees, her patella tracks well Left hip examination shows decreased range of motion when compared to her right hip, pain with range of motion, no tenderness over her bursa Results Reviewed Results Reviewed: X-rays of the patient's left hip show end-stage degenerative joint disease with grade 4 [id number]-[id number] arthritis, subchondral sclerosis, osteophyte formation, no acute bony abnormalities Assessment & Plan Assessment & Plan (1) Left hip pain: Code(s): M25.552 - Pain in left hip Plan Ms. Cuenca presents with progressively worsening left hip pain due to end-stage degenerative joint disease. I had a lengthy discussion with the patient regarding the treatment options. At this point she has failed continued non operative treatments. The risks and benefits of left total hip replacement surgery were discussed at length with the patient. The patient wishes to proceed with surgery. The patient will be scheduled for next available date. I will see her back 1 week prior to her surgery to answer any final questions that she might have. I did refill her prescription for oxycodone to help with her pain in the meantime. Feel free to call me at any time should questions regarding her orthopedic management arise. I spent 22 minutes in reviewing the patient's records and imaging studies, seeing the patient and documenting in the medical record. Medications: Refilled oxycodone Partial Fill upon patient request. 5 mg PO Q8H PRN 30 tabs 0RF pain Coding Level of Care Code Est Pt Level 2 (66050) Diagnoses Left hip pain M25.552
== END 2023-07-23 14:43 | disposition home or self-care (01) ==
PROVIDERS: PCP Family Medicine; Visit Provider Orthopaedic Surgery
DX: M16.12 Unilateral primary osteoarthritis, left hip (principal)
CPT/HCPCS: 99213

== ENCOUNTER → 2023-07-23 14:17 | Outpatient (BNVA) | payer MEDICARE, MEDICAID, SELFPAY | PROVIDERS: PCP Family Medicine; Visit Provider Orthopaedic Surgery | DX: M16.12 Unilateral primary osteoarthritis, left hip (principal) | CPT/HCPCS: 99212 ==

== ENCOUNTER 2023-10-20 13:12 | Outpatient (AMB) | payer MEDICARE, MEDICAID, SELFPAY ==
--- NOTE | 2023-10-20 13:26 | MHC.OFFVIS ---
Vital Signs 10/20/23 13:27 Height 5 ft 5 in Weight 206 lb BMI 34.3 Intake Visit Reasons: OV- left hip pain Intake Note: Maria Guadalupe is a 68 year old female who presents today for a follow up of her left hip pain. She was last seen with Dr. Culp who referred her to Dr. Jackson for Left XAVIER. hx of left total knee replacement surgery on 05/05/2023. Allergies morphine Allergy (Severe, Verified 07/23/23 14:22) itchy rash HPI HPI OV- left hip pain: Details: Maria Guadalupe is a 68 year old female who presents today for a follow up of her left hip pain. She was last seen with Dr. Culp who referred her to Dr. Jackson for Left XAVIER. She describes pain with walking, sleeping and all activities of daily living. She describes inability to comfortably engage in meaningful activities. She feels quality of her life is diminished. She was previously scheduled for a left total hip arthroplasty and is here today to discuss. [facility] Medical History Left knee pain Left bundle branch block (LBBB) Osteoarthritis Hx of breast cancer GERD (gastroesophageal reflux disease) Anxiety Depression Asthma Aortic stenosis, mild Elevated cholesterol HTN (hypertension) Hx of concussion BOUBACAR on CPAP Surgical History History of lumpectomy of right breast Hx of tonsillectomy Hx of hysterectomy, total Hx of bilateral cataract extraction History of bilateral carpal tunnel release Hx of colonoscopy Status post right knee replacement History of arthroscopy of left shoulder Social History Household Members: Spouse Housing: House Are you a primary long term care social worker to a significant other at home: No Do you presently have visiting nurse or other home services: No Patient Tobacco Use Status: Former Tobacco user Quit Date: Tobacco use type: Cigar Second Hand Smoke Exposure: No Advance Directives Date on File: 02/14/23 Physical Exam Vital Signs: BMI result Body Mass Index 34.3 Const General: cooperative, healthy appearing, no acute distress, well developed and alert HEENT Head: Yes normal to inspection, Yes normocephalic and Yes atraumatic Mouth: moist mucous membranes Eyes General: appearance normal, both eyes and all related structures EOM: EOMs intact bilaterally Chest Other: no audible wheezing. Resp Other: No audible wheezing Effort & Inspection: normal respiratory effort Cardio Other: Radial pulse palpable with no rythmic abnormalities Back/Spine/Pelvis Cervical Spine: normal cervical lordosis Skin General skin exam: no rashes or lesions noted Neuro General: no focal motor deficits Extrem Other: 2+ dorsalis pedis pulse 90 degrees of hip flexion with no internal rotation and 10 degrees of painful external rotation. Positive Stinchfield Positive impingement Psych Appearance: grossly normal and well kempt Mental Status: mental status grossly normal Speech and movement: Normal speech and movement present Affect: normal affect Attitude: cooperative Results Reviewed Results Reviewed: I personally reviewed relevant radiographs. Severe left hip osteoarthritis Moderate right hip osteoarthritis Assessment & Plan Assessment & Plan (1) Osteoarthritis of left hip: Code(s): M16.12 - Unilateral primary osteoarthritis, left hip Category: Medical Plan: This is a very pleasant 68-year-old female with severe osteoarthritis of the left hip. I recommend hip arthroplasty. This has been recommended in the past and she would like to get this done. It was initially scheduled for late October. We will coordinate to so as to try to do this in November. I discussed with her the surgery as well as the risks, benefits and alternatives including, but not limited to, infection, nerve injury, fracture, leg length discrepancy, need for further surgery, dislocation as well as medical complications associated with surgery such as this including, but not limited to, blood clots, pneumonia, urinary tract infections, called a pulmonary complications. She does have a alpha-1 antitrypsin lung disease and has been taking low-dose narcotics recently. I recommend she discontinue preoperative narcotics and explained that this will better help to control her pain postoperatively. She agrees with this. She will talk to our nurse navigator to have her rescheduled and she has cardiac clearance pending. Coding Level of Care Code Est Pt Level 4 (68011) Diagnoses Osteoarthritis of left hip M16.12
[2023-10-20 13:27] VITALS: BMI 34.3
== END 2023-10-20 16:00 ==
PROVIDERS: PCP Family Medicine; Visit Provider Orthopaedic Surgery
DX: M16.12 Unilateral primary osteoarthritis, left hip (principal)
CPT/HCPCS: 99214

== ENCOUNTER → 2023-10-20 13:12 | Outpatient (BNVA) | payer MEDICARE, MEDICAID, SELFPAY | PROVIDERS: PCP Family Medicine; Visit Provider Orthopaedic Surgery | DX: M16.12 Unilateral primary osteoarthritis, left hip (principal) | CPT/HCPCS: 99212 ==

== ENCOUNTER → 2023-11-04 09:02 | Outpatient (BNVA) | payer MEDICARE, MEDICAID, SELFPAY | PROVIDERS: PCP Family Medicine | DX: Z01.818 Encounter for other preprocedural examination (principal) ==